=== PATIENT | male | born 1955 | race Caucasian/White ===

== ENCOUNTER 2017-08-18 12:35 | Emergency (ER) | payer BC ==
[~2017-08-18] VITALS: Ht 172.7 cm; Wt 85.7 kg
[~2017-08-18 12:35] MED LIST: ATOR20TA PO; GABA300C10 PO; HYDR1LIQ PO; METH10T PO; RAMI2.5C33 PO
[2017-08-18 14:22] VITALS: BP 142/62
[2017-08-18] MEDS ORDERED: HYDROcodone-ACET 10/325MG TAB PO ONE (14:45)
== END 2017-08-18 14:33 | disposition home or self-care (01) ==
LOC: ER 12:47
DX: S81.802D Unspecified open wound, left lower leg, subsequent encounter (principal); S81.801D Unspecified open wound, right lower leg, subsequent encounter; F17.210 Nicotine dependence, cigarettes, uncomplicated; E11.22 Type 2 diabetes mellitus with diabetic chronic kidney disease; I12.9 Hypertensive chronic kidney disease with stage 1 through stage 4 chronic kidney disease, or unspecified chronic kidney disease; N18.9 Chronic kidney disease, unspecified; Z79.4 Long term (current) use of insulin; Z76.0 Encounter for issue of repeat prescription; Z88.6 Allergy status to analgesic agent; Z91.040 Latex allergy status; X58.XXXD Exposure to other specified factors, subsequent encounter

== ENCOUNTER 2017-09-19 12:23 | Inpatient (IN) | payer SELFPAY ==
[~2017-09-19] VITALS: Ht 152.4 cm; Wt 80.0 kg
[2017-09-19 14:04] LABS: Albumin 1.8 g/dL (3.4-5.0); Bilirubin, Total 0.1 mg/dL (0.2-1.0); Calcium 8.4 mg/dL (8.5-10.1); Potassium 5.2 mmol/L (3.5-5.1); Total Protein 8.3 g/dL (6.4-8.2)
[2017-09-19 14:11] LABS: Basophils # (auto) 0.1 uL; Eosinophils # (auto) 0.2 uL; Lymphocytes # (auto) 0.9 uL; Mean Corpuscular Volume 77.5 fL (80.0-100.0); Monocytes # (auto) 0.3 uL; Monocytes % (auto) 4.1 % (0.0-12.0); Neutrophils # (auto) 5.4 uL; White Blood Cell 6.9 10^3/uL (4.4-10.8)
[2017-09-19 14:17] LABS: Basophils % (auto) 0.9 % (0.0-2.0); Eosinophils % (auto) 3.4 % (0.0-7.0); Hematocrit 23.8 % (41.0-53.0); Hemoglobin 7.2 g/dL (13.5-17.5); Lymphocytes % (auto) 13.3 % (10.0-50.0); Mean Corpuscular Hemoglobin 23.5 pg (28.0-32.0); Mean Corpuscular Hgb Conc. 30.3 g/dL (32.0-36.0); Neutrophils % (auto) 78.3 % (37.0-80.0); Platelet Count (auto) 604 10^3/uL (140-450); Red Blood Cells 3.07 10^6/uL (4.5-5.90); Red Cell Distribution Width 17.3 % (11.8-14.3)
[2017-09-19] MEDS ORDERED: VANCOMYCIN 1GM/250ML 250 ML IV ONE (20:45)
[2017-09-19] MEDS ORDERED: HYDROcodone-ACET 10/325MG TAB PO ONE (20:45)
[2017-09-19] MEDS ORDERED: cefTRIAXone 1GM/10ml IVPUSH 10 ML IV ONE (20:45)
[2017-09-19] MEDS ORDERED: diphenhdrAMINE HCL 50 MG/1 ML VL ONE (21:56)
[2017-09-19] MEDS ORDERED: diphenhdrAMINE HCL 50 MG/1 ML VL IV ONE (22:00)
[2017-09-19 22:14] LABS: Urine Bacteria NONE SEEN /hpf (None Seen); Urine Blood Negative /uL (Negative); Urine Hyaline Cast FEW /lpf (0 - 2); Urine Specific Gravity 1.015 (1.001-1.035); Urine WBC <1 /hpf (0 - 3)
[2017-09-19] MEDS ORDERED: ACETAMINOPHEN 500 MG TAB PO PRN (23:30)
[2017-09-19] MEDS ORDERED: DEXTROSE (50%) 50ML SYRG IV PRN ×2 (23:30)
[2017-09-19] MEDS ORDERED: ONDANSETRON HCL 4 MG/2 ML VIAL IV PRN (23:30)
[2017-09-20] VITALS (12 sets, daily range): BP systolic 123–160; BP diastolic 58–85
[2017-09-20] MEDS: HYDROcodone-ACET 5/325MG TAB PO PRN ×2 (00:51→08:31)
[2017-09-20] MEDS ORDERED: LORazepam 2MG/ML-1ML VIAL IV PRN (02:30)
[2017-09-20] MEDS: GABAPENTIN 300 MG CAP PO SCH ×4 (05:52→21:36)
[2017-09-20] MEDS: CLINDAMYCIN 600MG IV 50 ML IV SCH ×3 (05:52→22:25)
[2017-09-20] MEDS: HYDROmorphone HCL 2 MG/ML VL IV PRN ×2 (05:57→10:11)
[2017-09-20] MEDS: InsuLIN REG 1unit/0.01ml Soln (100units/ml) SC SCH ×4 (06:04→21:37)
[2017-09-20] MEDS: ACCU-CHEK COMFORT CURVE STRIP VI SCH ×4 (06:04→21:37)
[2017-09-20 06:06] LABS: Hematocrit 22.8 % (41.0-53.0); Hemoglobin 7.1 g/dL (13.5-17.5); Mean Corpuscular Hemoglobin 23.7 pg (28.0-32.0); Mean Corpuscular Hgb Conc. 31.2 g/dL (32.0-36.0)
[2017-09-20 06:08] LABS: Mean Corpuscular Volume 76.1 fL (80.0-100.0); Platelet Count (auto) 525 10^3/uL (140-450); Red Blood Cells 2.99 10^6/uL (4.5-5.90); Red Cell Distribution Width 17.5 % (11.8-14.3); White Blood Cell 6.2 10^3/uL (4.4-10.8)
[2017-09-20 06:22] LABS: BUN/Creatinine Ratio 10.7; Calcium 8.5 mg/dL (8.5-10.1); Potassium 4.9 mmol/L (3.5-5.1)
[2017-09-20 08:31] LABS: Basophils # (auto) 0.1 uL; Basophils % (auto) 0.9 % (0.0-2.0); Eosinophils # (auto) 0.3 uL; Eosinophils % (auto) 5.1 % (0.0-7.0); Lymphocytes # (auto) 1.4 uL; Lymphocytes % (auto) 21.6 % (10.0-50.0); Monocytes # (auto) 0.5 uL; Monocytes % (auto) 7.2 % (0.0-12.0); Neutrophils # (auto) 4.3 uL; Neutrophils % (auto) 65.2 % (37.0-80.0)
[2017-09-20] MEDS: cefTRIAXone 1GM/10ml IVPUSH 10 ML IV SCH (08:31)
[2017-09-20 10:47] LABS: Alcohol, Urine < 3.0 mg/dL (0-5); Amphetamine Screen, Urine NEGATIVE (NEGATIVE); Barbiturate Scree,Urine NEGATIVE (NEGATIVE); Benzodiazephine Screen, Urine NEGATIVE (NEGATIVE); Cannabinoid Screen, Urine POSITIVE (NEGATIVE); Cocaine Screen, Urine NEGATIVE (NEGATIVE); Opiate Scree,Urine NEGATIVE (NEGATIVE); Phencyclidine Screen, Urine NEGATIVE (NEGATIVE)
[2017-09-20] MEDS: METHADONE HCL 10 MG TAB PO SCH (15:35)
[2017-09-20 15:59] LABS: INR 1.05 (0.9-1.15); Partial Thromboplastin Time 38.3 sec (23.78-33.04); Prothrombin Time 11.2 sec (9.27-12.13)
[2017-09-21 05:23] VITALS: BP 150/60
[2017-09-21] MEDS: CLINDAMYCIN 600MG IV 50 ML IV SCH ×3 (05:24→21:32)
[2017-09-21] MEDS: HYDROmorphone HCL 2 MG/ML VL IV PRN ×2 (05:24→08:34)
[2017-09-21] MEDS: GABAPENTIN 300 MG CAP PO SCH ×3 (05:24→21:33)
[2017-09-21] MEDS: ACCU-CHEK COMFORT CURVE STRIP VI SCH ×4 (06:25→21:48)
[2017-09-21] MEDS: InsuLIN REG 1unit/0.01ml Soln (100units/ml) SC SCH ×4 (06:47→21:48)
[2017-09-21 09:39] VITALS: BP 138/69
[2017-09-21] MEDS: cefTRIAXone 1GM/10ml IVPUSH 10 ML IV SCH (09:45)
[2017-09-21] MEDS: METHADONE HCL 10 MG TAB PO SCH ×2 (09:45→21:33)
[2017-09-21 13:00] VITALS: BP 154/76
[2017-09-21 17:20] VITALS: BP 142/71
[2017-09-21] MEDS: INSULIN LANTUS (GLARGINE) 1 /0.01ml (100units/ml) SC SCH (21:48)
[2017-09-21 22:00] VITALS: BP 145/67
[2017-09-22 04:50] VITALS: BP 146/65
[2017-09-22] MEDS: CLINDAMYCIN 600MG IV 50 ML IV SCH (05:34)
[2017-09-22] MEDS: GABAPENTIN 300 MG CAP PO SCH ×3 (05:35→22:00)
[2017-09-22] MEDS: InsuLIN REG 1unit/0.01ml Soln (100units/ml) SC SCH ×4 (06:29→22:16)
[2017-09-22] MEDS: ACCU-CHEK COMFORT CURVE STRIP VI SCH ×4 (06:29→22:16)
[2017-09-22 09:00] VITALS: BP 140/81
[2017-09-22] MEDS: METHADONE HCL 10 MG TAB PO SCH ×2 (09:09→22:15)
[2017-09-22] MEDS: cefTRIAXone 1GM/10ml IVPUSH 10 ML IV SCH (09:09)
[2017-09-22 13:00] VITALS: BP 147/75
[2017-09-22] MEDS: ceFAZolin 1GM/100ML 100 ML IV SCH ×2 (15:41→22:15)
[2017-09-22 17:00] VITALS: BP 163/67
[2017-09-22 22:00] VITALS: BP 157/66
[2017-09-22] MEDS: INSULIN LANTUS (GLARGINE) 1 /0.01ml (100units/ml) SC SCH (22:16)
[2017-09-23 05:00] VITALS: BP 142/71
[2017-09-23] MEDS: ceFAZolin 1GM/100ML 100 ML IV SCH ×3 (05:24→22:29)
[2017-09-23] MEDS: GABAPENTIN 300 MG CAP PO SCH ×3 (05:27→21:53)
[2017-09-23 06:03] LABS: Basophils # (auto) 0.1 uL; Eosinophils # (auto) 0.2 uL; Hemoglobin 9.4 g/dL (13.5-17.5); Lymphocytes # (auto) 1.1 uL; Nucleated Red Blood Cells % 0.1 %; Red Cell Distribution Width 17.5 % (11.8-14.3)
[2017-09-23 06:05] LABS: Basophils % (auto) 1.1 % (0.0-2.0); Lymphocytes % (auto) 19.3 % (10.0-50.0); Mean Corpuscular Hemoglobin 24.5 pg (28.0-32.0); Mean Corpuscular Hgb Conc. 31.2 g/dL (32.0-36.0); Mean Corpuscular Volume 78.4 fL (80.0-100.0); Monocytes # (auto) 0.4 uL; Monocytes % (auto) 7.3 % (0.0-12.0); Neutrophils % (auto) 68.3 % (37.0-80.0); Platelet Count (auto) 494 10^3/uL (140-450); Red Blood Cells 3.82 10^6/uL (4.5-5.90); White Blood Cell 5.8 10^3/uL (4.4-10.8)
[2017-09-23 06:11] LABS: Potassium 5.1 mmol/L (3.5-5.1)
[2017-09-23 06:18] LABS: Albumin 1.7 g/dL (3.4-5.0); Calcium 8.7 mg/dL (8.5-10.1)
[2017-09-23 06:21] LABS: Bilirubin, Total 0.2 mg/dL (0.2-1.0)
[2017-09-23] MEDS: ACCU-CHEK COMFORT CURVE STRIP VI SCH ×4 (06:40→22:13)
[2017-09-23] MEDS: InsuLIN REG 1unit/0.01ml Soln (100units/ml) SC SCH ×4 (06:41→22:12)
[2017-09-23 09:00] VITALS: BP 137/62
[2017-09-23] MEDS: METHADONE HCL 10 MG TAB PO SCH ×2 (09:32→21:53)
[2017-09-23] MEDS: ASCORBIC ACID 500 MG TAB PO SCH ×2 (09:32→22:13)
[2017-09-23] MEDS: MULTIPLE VITAMINS W/ MINERALS TAB PO SCH ×2 (09:34→22:13)
[2017-09-23 13:00] VITALS: BP 153/99
[2017-09-23] MEDS ORDERED: LIDOCAINE 1% (LOCAL ANESTH.) PF 5ml SDV ID ONE (14:15)
[2017-09-23 16:59] VITALS: BP 153/74
[2017-09-23 20:00] VITALS: BP 150/70
[2017-09-23 22:00] VITALS: BP 150/68
[2017-09-23] MEDS: INSULIN LANTUS (GLARGINE) 1 /0.01ml (100units/ml) SC SCH (22:12)
[2017-09-23] MEDS: SODIUM CHLOR 0.9% PF (SALINE LOCK) 10ML VIAL/SYR IV SCH (22:13)
[2017-09-24 05:00] VITALS: BP 136/63
[2017-09-24] MEDS: GABAPENTIN 300 MG CAP PO SCH ×3 (06:00→21:05)
[2017-09-24] MEDS: ceFAZolin 1GM/100ML 100 ML IV SCH (06:14)
[2017-09-24] MEDS: InsuLIN REG 1unit/0.01ml Soln (100units/ml) SC SCH ×4 (06:18→22:00)
[2017-09-24] MEDS: ACCU-CHEK COMFORT CURVE STRIP VI SCH ×4 (06:36→22:20)
[2017-09-24 08:00] VITALS: BP 154/70
[2017-09-24] MEDS: SODIUM CHLOR 0.9% PF (SALINE LOCK) 10ML VIAL/SYR IV SCH ×2 (09:52→22:20)
[2017-09-24] MEDS: PRO-STAT 64 30ML PO SCH (10:00)
[2017-09-24] MEDS: ASCORBIC ACID 500 MG TAB PO SCH ×2 (10:16→21:05)
[2017-09-24] MEDS: METHADONE HCL 10 MG TAB PO SCH ×2 (10:16→21:06)
[2017-09-24] MEDS: MULTIPLE VITAMINS W/ MINERALS TAB PO SCH ×2 (10:16→21:05)
[2017-09-24 12:00] VITALS: BP 155/71
[2017-09-24 17:00] VITALS: BP 143/68
[2017-09-24] MEDS: cefTRIAXone 1GM/10ml IVPUSH 10 ML IV SCH (21:03)
[2017-09-24] MEDS: INSULIN LANTUS (GLARGINE) 1 /0.01ml (100units/ml) SC SCH (22:00)
[2017-09-24 22:55] VITALS: BP 151/80
[2017-09-25 05:42] VITALS: BP 128/69
[2017-09-25] MEDS: GABAPENTIN 300 MG CAP PO SCH ×3 (05:44→22:00)
[2017-09-25 05:52] LABS: Partial Thromboplastin Time 38.3 sec (23.78-33.04); Prothrombin Time 10.7 sec (9.27-12.13)
[2017-09-25] MEDS: ACCU-CHEK COMFORT CURVE STRIP VI SCH ×4 (06:00→22:00)
[2017-09-25] MEDS: InsuLIN REG 1unit/0.01ml Soln (100units/ml) SC SCH ×4 (07:00→22:00)
[2017-09-25] MEDS ORDERED: IOHEXOL 350 MG/ML 100ML IJ ONE (07:19)
[2017-09-25] MEDS ORDERED: LIDOCAINE 2%HCL (LOCAL ANESTH.) INJ 20ML MDV ONE (07:20)
[2017-09-25 08:40] VITALS: BP 129/67
[2017-09-25] MEDS ORDERED: ANGIOMAX 250 MG VIAL IV ONE (08:53)
[2017-09-25] MEDS ORDERED: fentaNYL CITRATE 100 MCG/2 ML VL ONE (08:53)
[2017-09-25] MEDS ORDERED: SODIUM CHL 0.9% 0 ML ONE (08:54)
[2017-09-25] MEDS ORDERED: MIDAZOLAM HCL 1MG/1ML-2 ML VIAL ONE (08:54)
[2017-09-25] MEDS: PRO-STAT 64 30ML PO SCH (10:00)
[2017-09-25] MEDS: ASCORBIC ACID 500 MG TAB PO SCH ×2 (10:10→22:31)
[2017-09-25] MEDS: METHADONE HCL 10 MG TAB PO SCH ×2 (10:10→22:30)
[2017-09-25] MEDS: MULTIPLE VITAMINS W/ MINERALS TAB PO SCH ×2 (10:10→22:30)
[2017-09-25] MEDS: cefTRIAXone 1GM/10ml IVPUSH 10 ML IV SCH ×2 (10:10→21:00)
[2017-09-25] MEDS: SODIUM CHLOR 0.9% PF (SALINE LOCK) 10ML VIAL/SYR IV SCH ×2 (10:11→22:00)
[2017-09-25 12:28] VITALS: BP 146/70
[2017-09-25 16:46] VITALS: BP 153/80
[2017-09-25] MEDS: INSULIN LANTUS (GLARGINE) 1 /0.01ml (100units/ml) SC SCH (22:00)
[2017-09-25 22:06] VITALS: BP 151/70
[2017-09-26 05:00] VITALS: BP 107/66
[2017-09-26] MEDS: GABAPENTIN 300 MG CAP PO SCH (06:00)
[2017-09-26] MEDS: InsuLIN REG 1unit/0.01ml Soln (100units/ml) SC SCH ×2 (06:42→11:36)
[2017-09-26] MEDS: ACCU-CHEK COMFORT CURVE STRIP VI SCH ×2 (06:42→11:28)
[2017-09-26] MEDS: cefTRIAXone 1GM/10ml IVPUSH 10 ML IV SCH (08:30)
[2017-09-26 09:00] VITALS: BP 122/60
[2017-09-26] MEDS: MULTIPLE VITAMINS W/ MINERALS TAB PO SCH (09:30)
[2017-09-26] MEDS: SODIUM CHLOR 0.9% PF (SALINE LOCK) 10ML VIAL/SYR IV SCH (09:30)
[2017-09-26] MEDS: METHADONE HCL 10 MG TAB PO SCH (09:30)
[2017-09-26] MEDS: ASCORBIC ACID 500 MG TAB PO SCH (09:31)
[2017-09-26] MEDS: PRO-STAT 64 30ML PO SCH (09:31)
[2017-09-26 13:00] VITALS: BP 135/61
== END 2017-09-26 15:00 | disposition home or self-care (01) | DRG 602 ==
LOC: ER 12:23 → WEST WING 12:24 → TELE-WESTW 09-20 00:20
PROVIDERS: ADMIT Nurse Practitioner Family; ATTEND Family Medicine
PROC: 30233N1 Transfusion of Nonautologous Red Blood Cells into Peripheral Vein, Percutaneous Approach (ICD-10-PCS; principal; 2017-09-20)
PROC: 02HV33Z Insertion of Infusion Device into Superior Vena Cava, Percutaneous Approach (ICD-10-PCS; 2017-09-23)
DX: L03.115 Cellulitis of right lower limb (principal); E43 Unspecified severe protein-calorie malnutrition; E11.21 Type 2 diabetes mellitus with diabetic nephropathy; E11.40 Type 2 diabetes mellitus with diabetic neuropathy, unspecified; R56.9 Unspecified convulsions; L97.528 Non-pressure chronic ulcer of other part of left foot with other specified severity; L97.518 Non-pressure chronic ulcer of other part of right foot with other specified severity; L98.498 Non-pressure chronic ulcer of skin of other sites with other specified severity; M86.8X8 Other osteomyelitis, other site; E11.51 Type 2 diabetes mellitus with diabetic peripheral angiopathy without gangrene; E11.69 Type 2 diabetes mellitus with other specified complication; E11.22 Type 2 diabetes mellitus with diabetic chronic kidney disease; E11.610 Type 2 diabetes mellitus with diabetic neuropathic arthropathy; E11.621 Type 2 diabetes mellitus with foot ulcer; N18.3 Chronic kidney disease, stage 3 (moderate); D64.9 Anemia, unspecified; L03.116 Cellulitis of left lower limb; I12.9 Hypertensive chronic kidney disease with stage 1 through stage 4 chronic kidney disease, or unspecified chronic kidney disease; F41.9 Anxiety disorder, unspecified; I73.9 Peripheral vascular disease, unspecified; E78.5 Hyperlipidemia, unspecified; B95.61 Methicillin susceptible Staphylococcus aureus infection as the cause of diseases classified elsewhere; E11.622 Type 2 diabetes mellitus with other skin ulcer; F12.10 Cannabis abuse, uncomplicated; F17.210 Nicotine dependence, cigarettes, uncomplicated; Z53.29 Procedure and treatment not carried out because of patient's decision for other reasons; E11.65 Type 2 diabetes mellitus with hyperglycemia; L97.529 Non-pressure chronic ulcer of other part of left foot with unspecified severity; I77.89 Other specified disorders of arteries and arterioles; Z82.49 Family history of ischemic heart disease and other diseases of the circulatory system; Z88.8 Allergy status to other drugs, medicaments and biological substances; Z91.040 Latex allergy status; Z68.34 Body mass index [BMI] 34.0-34.9, adult; I25.2 Old myocardial infarction; Z79.4 Long term (current) use of insulin; Z83.3 Family history of diabetes mellitus; Z79.899 Other long term (current) drug therapy; Z89.432 Acquired absence of left foot; Z89.431 Acquired absence of right foot; Z88.6 Allergy status to analgesic agent; Z80.8 Family history of malignant neoplasm of other organs or systems
CPT/HCPCS: 36415; 36569; 71045; 73630; 80048; 80053; 80307; 81001; 82962; 83036; 83605; 85007; 85025; 85027; 85610; 85730; 86850; 86900; 86901; 86920; 87040; 87077; 87081; 87186; 87205; 93926; 96367; 96374; 96375; J0690; J1815; J2250; J3490

== ENCOUNTER 2017-10-17 02:42 | Inpatient (IN) | payer BC ==
[~2017-10-17] VITALS: Ht 170.2 cm; Wt 80.3 kg
[2017-10-17 03:58] LABS: Basophils # (auto) 0.1 uL; Eosinophils # (auto) 0.3 uL; Eosinophils % (auto) 5.2 % (0.0-7.0); Hemoglobin 9.5 g/dL (13.5-17.5); Monocytes # (auto) 0.4 uL; Monocytes % (auto) 6.5 % (0.0-12.0); Red Cell Distribution Width 18.3 % (11.8-14.3); White Blood Cell 6.1 10^3/uL (4.4-10.8)
[2017-10-17 04:05] LABS: Basophils % (auto) 1.3 % (0.0-2.0); Hematocrit 29.9 % (41.0-53.0); Lymphocytes # (auto) 1.3 uL; Lymphocytes % (auto) 21.8 % (10.0-50.0); Mean Corpuscular Hemoglobin 24.6 pg (28.0-32.0); Mean Corpuscular Hgb Conc. 31.8 g/dL (32.0-36.0); Mean Corpuscular Volume 77.2 fL (80.0-100.0); Neutrophils % (auto) 65.2 % (37.0-80.0); Nucleated Red Blood Cells % 0.3 %; Platelet Count (auto) 439 10^3/uL (140-450); Red Blood Cells 3.87 10^6/uL (4.5-5.90)
[2017-10-17 04:14] LABS: Albumin 2.2 g/dL (3.4-5.0); BUN/Creatinine Ratio 15.3; Calcium 8.8 mg/dL (8.5-10.1); Potassium 4.1 mmol/L (3.5-5.1)
[2017-10-17 04:16] LABS: Bilirubin, Total 0.1 mg/dL (0.2-1.0); Total Protein 9.2 g/dL (6.4-8.2)
[2017-10-17] MEDS ORDERED: SODIUM CHLORIDE 0.9% 1,000 ML IV ONE (10:13)
[2017-10-17] MEDS ORDERED: METOCLOPRAMIDE HCL 5MG/ml INJ 2ml VIAL IV ONE (10:15)
[2017-10-17] MEDS ORDERED: METHADONE HCL 10 MG TAB PO ONE (10:15)
[2017-10-17] MEDS ORDERED: VANCOMYCIN 1GM/250ML 250 ML IV ONE (15:00)
[2017-10-17] MEDS ORDERED: HYDROmorphone HCL 2 MG/ML VL IV PRN (15:15)
[2017-10-17] MEDS ORDERED: LORazepam 2MG/ML-1ML VIAL IV ONE (15:15)
[2017-10-17] MEDS ORDERED: NITROGLYCERIN 0.4 MG SL TAB SL PRN (15:15)
[2017-10-17] MEDS ORDERED: LACTULOSE 20Gm/30ML SOLN PO PRN (15:15)
[2017-10-17] MEDS ORDERED: LORazepam 0.5 MG TAB PO PRN (15:15)
[2017-10-17] MEDS ORDERED: MORPHINE SULF(PF) 0.5MG/ML 10ML VIAL IV PRN (15:15)
[2017-10-17] MEDS ORDERED: TEMAZEPAM 15 MG CAP PO PRN (15:15)
[2017-10-17] MEDS ORDERED: DEXTROSE (50%) 50ML SYRG IV PRN (15:15)
[2017-10-17] MEDS ORDERED: PIPERACILLIN-TAZOB 3.375GM 100 ML IV ONE (15:15)
[2017-10-17] MEDS ORDERED: PROMETHAZINE HCL 25 MG/ML 1ML IV PRN (15:15)
[2017-10-17] MEDS ORDERED: ACETAMINOPHEN 500 MG TAB PO PRN (15:15)
[2017-10-17] MEDS ORDERED: diphenhdrAMINE HCL 50 MG/1 ML VL IV ONE (15:30)
[2017-10-17] MEDS: SODIUM CHLORIDE 0.9% 1,000 ML IV SCH (15:38)
[2017-10-17] MEDS: ENOXAPARIN SOD 40 MG/0.4 ML SYRINGE SC SCH (15:51)
[2017-10-17 16:41] LABS: Urine Bacteria FEW /hpf (None Seen); Urine Blood TRACE /uL (Negative); Urine Hyaline Cast FEW /lpf (0 - 2); Urine Specific Gravity 1.015 (1.001-1.035); Urine WBC 3 /hpf (0 - 3)
[2017-10-17] MEDS: ACCU-CHEK COMFORT CURVE STRIP VI SCH ×2 (17:14→22:19)
[2017-10-17] MEDS: InsuLIN REG 1unit/0.01ml Soln (100units/ml) SC SCH ×2 (17:17→22:22)
[2017-10-17 20:23] LABS: INR 1.01 (0.9-1.15); Partial Thromboplastin Time 41.8 sec (23.78-33.04); Prothrombin Time 10.8 sec (9.27-12.13)
[2017-10-17] MEDS: HYDROcodone-ACET 5/325MG TAB PO PRN (20:31)
[2017-10-17] MEDS: CLINDAMYCIN 600MG IV 50 ML IV SCH (20:35)
[2017-10-17] MEDS: PIPERACILLIN-TAZOB 3.375GM 100 ML IV SCH (22:07)
[2017-10-17 22:08] VITALS: BP 162/73
[2017-10-18 00:49] VITALS: BP 120/56
[2017-10-18] MEDS: SODIUM CHLORIDE 0.9% 1,000 ML IV SCH ×3 (01:07→21:07)
[2017-10-18] MEDS: CLINDAMYCIN 600MG IV 50 ML IV SCH (01:40)
[2017-10-18] MEDS: HYDROcodone-ACET 5/325MG TAB PO PRN ×2 (02:38→08:30)
[2017-10-18] MEDS: PIPERACILLIN-TAZOB 3.375GM 100 ML IV SCH ×4 (02:58→20:44)
[2017-10-18 05:14] VITALS: BP 99/57
[2017-10-18] MEDS: ACCU-CHEK COMFORT CURVE STRIP VI SCH ×4 (06:26→21:32)
[2017-10-18] MEDS: InsuLIN REG 1unit/0.01ml Soln (100units/ml) SC SCH ×4 (06:26→21:31)
[2017-10-18 08:20] LABS: Basophils # (auto) 0.1 uL; Eosinophils # (auto) 0.3 uL; Eosinophils % (auto) 6.3 % (0.0-7.0); Hemoglobin 9.2 g/dL (13.5-17.5); Monocytes # (auto) 0.2 uL; Monocytes % (auto) 4.6 % (0.0-12.0)
[2017-10-18 08:22] LABS: Basophils % (auto) 1.1 % (0.0-2.0); Hematocrit 29.3 % (41.0-53.0); Lymphocytes # (auto) 0.4 uL; Lymphocytes % (auto) 7.3 % (10.0-50.0); Mean Corpuscular Hemoglobin 24.2 pg (28.0-32.0); Mean Corpuscular Hgb Conc. 31.5 g/dL (32.0-36.0); Mean Corpuscular Volume 76.9 fL (80.0-100.0); Neutrophils % (auto) 80.7 % (37.0-80.0); Nucleated Red Blood Cells % 0.2 %; Platelet Count (auto) 365 10^3/uL (140-450); Red Blood Cells 3.82 10^6/uL (4.5-5.90)
[2017-10-18] MEDS ORDERED: METH10T PO (08:23)
[2017-10-18 08:38] LABS: Albumin 1.7 g/dL (3.4-5.0); BUN/Creatinine Ratio 14.2; Bilirubin, Total 0.2 mg/dL (0.2-1.0); Calcium 8.4 mg/dL (8.5-10.1); Potassium 4.4 mmol/L (3.5-5.1); Total Protein 7.8 g/dL (6.4-8.2)
[2017-10-18 09:00] VITALS: BP 96/44
[2017-10-18] MEDS ORDERED: METHADONE HCL 10 MG TAB PO SCH (10:00)
[2017-10-18] MEDS: ENOXAPARIN SOD 40 MG/0.4 ML SYRINGE SC SCH (10:36)
[2017-10-18] MEDS: METHADONE HCL 10 MG TAB PO SCH ×2 (10:36→21:32)
[2017-10-18 12:51] VITALS: BP 124/70
[2017-10-18 17:00] VITALS: BP 116/59
[2017-10-18 22:00] VITALS: BP 135/65
[2017-10-19] MEDS: PIPERACILLIN-TAZOB 3.375GM 100 ML IV SCH ×5 (02:28→21:00)
[2017-10-19] MEDS: HYDROcodone-ACET 5/325MG TAB PO PRN (02:33)
[2017-10-19] MEDS: ACCU-CHEK COMFORT CURVE STRIP VI SCH ×4 (06:13→21:00)
[2017-10-19] MEDS: InsuLIN REG 1unit/0.01ml Soln (100units/ml) SC SCH ×3 (06:13→17:29)
[2017-10-19 06:19] VITALS: BP 111/53
[2017-10-19 08:13] VITALS: BP 142/69
[2017-10-19 08:17] LABS: BUN/Creatinine Ratio 13.8; Calcium 8.1 mg/dL (8.5-10.1); Potassium 4.7 mmol/L (3.5-5.1)
[2017-10-19] MEDS: SODIUM CHLORIDE 0.9% 1,000 ML IV SCH ×2 (09:41→17:28)
[2017-10-19] MEDS: ENOXAPARIN SOD 40 MG/0.4 ML SYRINGE SC SCH (09:42)
[2017-10-19] MEDS: METHADONE HCL 10 MG TAB PO SCH ×2 (09:42→22:30)
[2017-10-19] MEDS ORDERED: DEXTROSE (50%) 50ML SYRG IV PRN (12:00)
[2017-10-19] MEDS ORDERED: INSLANTI SC (12:00)
[2017-10-19 13:00] VITALS: BP 140/64
[2017-10-19 16:20] VITALS: BP 132/78
[2017-10-19 22:00] VITALS: BP 123/68
[2017-10-19] MEDS ORDERED: InsuLIN REG 1unit/0.01ml Soln (100units/ml) SC SCH (22:00)
[2017-10-19] MEDS ORDERED: INSULIN LANTUS (GLARGINE) 1 /0.01ml (100units/ml) SC SCH (22:00)
[2017-10-20] MEDS: PIPERACILLIN-TAZOB 3.375GM 100 ML IV SCH ×3 (03:00→15:00)
[2017-10-20] MEDS: SODIUM CHLORIDE 0.9% 1,000 ML IV SCH ×2 (03:07→13:07)
[2017-10-20] MEDS: HYDROcodone-ACET 5/325MG TAB PO PRN (03:30)
[2017-10-20 06:00] VITALS: BP 142/63
[2017-10-20] MEDS: ACCU-CHEK COMFORT CURVE STRIP VI SCH ×3 (06:34→17:00)
[2017-10-20] MEDS: InsuLIN REG 1unit/0.01ml Soln (100units/ml) SC SCH ×3 (06:35→17:00)
[2017-10-20 07:39] LABS: Basophils # (auto) 0.1 uL; Eosinophils # (auto) 0.4 uL; Hemoglobin 8.2 g/dL (13.5-17.5); Lymphocytes # (auto) 1.1 uL; Mean Corpuscular Volume 77.7 fL (80.0-100.0); Monocytes # (auto) 0.3 uL; Neutrophils # (auto) 2.9 uL; White Blood Cell 4.8 10^3/uL (4.4-10.8)
[2017-10-20 07:43] LABS: Basophils % (auto) 1.4 % (0.0-2.0); Eosinophils % (auto) 7.9 % (0.0-7.0); Hematocrit 26.2 % (41.0-53.0); Lymphocytes % (auto) 23.3 % (10.0-50.0); Mean Corpuscular Hemoglobin 24.3 pg (28.0-32.0); Mean Corpuscular Hgb Conc. 31.3 g/dL (32.0-36.0); Monocytes % (auto) 7.2 % (0.0-12.0); Neutrophils % (auto) 60.2 % (37.0-80.0); Platelet Count (auto) 360 10^3/uL (140-450); Red Blood Cells 3.37 10^6/uL (4.5-5.90); Red Cell Distribution Width 18.1 % (11.8-14.3)
[2017-10-20 07:51] LABS: BUN/Creatinine Ratio 15.2; Calcium 8.5 mg/dL (8.5-10.1); Potassium 4.3 mmol/L (3.5-5.1)
[2017-10-20 08:33] VITALS: BP 126/66
[2017-10-20] MEDS: ENOXAPARIN SOD 40 MG/0.4 ML SYRINGE SC SCH (09:10)
[2017-10-20] MEDS: METHADONE HCL 10 MG TAB PO SCH (09:10)
[2017-10-20 12:55] VITALS: BP 150/75
[2017-10-20 19:30] VITALS: BP 126/83
== END 2017-10-20 19:40 | disposition home or self-care (01) | DRG 682 ==
LOC: ER 02:42 → TELE 02:43 → TELE-WESTW 19:45
PROVIDERS: ADMIT Internal Medicine; ATTEND Internal Medicine
PROC: 06HY33Z Insertion of Infusion Device into Lower Vein, Percutaneous Approach (ICD-10-PCS; principal; 2017-10-18)
DX: N17.9 Acute kidney failure, unspecified (principal); E43 Unspecified severe protein-calorie malnutrition; L97.312 Non-pressure chronic ulcer of right ankle with fat layer exposed; L03.115 Cellulitis of right lower limb; L03.116 Cellulitis of left lower limb; M86.272 Subacute osteomyelitis, left ankle and foot; E11.69 Type 2 diabetes mellitus with other specified complication; E11.610 Type 2 diabetes mellitus with diabetic neuropathic arthropathy; E11.621 Type 2 diabetes mellitus with foot ulcer; Z83.3 Family history of diabetes mellitus; E11.21 Type 2 diabetes mellitus with diabetic nephropathy; I12.9 Hypertensive chronic kidney disease with stage 1 through stage 4 chronic kidney disease, or unspecified chronic kidney disease; E11.22 Type 2 diabetes mellitus with diabetic chronic kidney disease; N18.3 Chronic kidney disease, stage 3 (moderate); R56.9 Unspecified convulsions; E78.5 Hyperlipidemia, unspecified; D63.8 Anemia in other chronic diseases classified elsewhere; E11.622 Type 2 diabetes mellitus with other skin ulcer; F17.210 Nicotine dependence, cigarettes, uncomplicated; F32.9 Major depressive disorder, single episode, unspecified; F41.9 Anxiety disorder, unspecified; G89.4 Chronic pain syndrome; I87.2 Venous insufficiency (chronic) (peripheral); L97.529 Non-pressure chronic ulcer of other part of left foot with unspecified severity; I70.0 Atherosclerosis of aorta; Z53.20 Procedure and treatment not carried out because of patient's decision for unspecified reasons; Z82.49 Family history of ischemic heart disease and other diseases of the circulatory system; Z88.5 Allergy status to narcotic agent; Z88.8 Allergy status to other drugs, medicaments and biological substances; Z88.6 Allergy status to analgesic agent; Z91.040 Latex allergy status; Z89.422 Acquired absence of other left toe(s); Z89.421 Acquired absence of other right toe(s); Z80.9 Family history of malignant neoplasm, unspecified; Z68.27 Body mass index [BMI] 27.0-27.9, adult
CPT/HCPCS: 36415; 71045; 73700; 76775; 80048; 80053; 80061; 81001; 82962; 83036; 83735; 84443; 85025; 85610; 85652; 85730; 87040; 87081; 93923; 96361; 96365; 96372; 96375; J1815; J2543; J3490

== ENCOUNTER 2020-05-30 16:42 | Inpatient (IN) | payer BC, MEDICAID ==
[~2020-05-30] VITALS: Ht 162.6 cm; Wt 66.1 kg
[~2020-05-30 16:42] MED LIST changes: -GABA300C10 PO; +INSLANTI SC
[2020-05-30] MEDS ORDERED: ONDANSETRON HCL 4 MG/2 ML VIAL IV ONE (17:45)
[2020-05-30] MEDS ORDERED: SODIUM CHLORIDE 0.9% 1,000 ML IVB ONE (17:45)
[2020-05-30] MEDS ORDERED: PANTOPRAZOLE 40 MG/10 ML VIAL INJ IV ONE (17:45)
[2020-05-30 17:56] LABS: Basophils # (auto) 0.1 10 ^3/uL (0-0.2); Basophils % (auto) 0.6 % (0.0-2.0); Eosinophils # (auto) 0 10 ^3/uL (0-0.8); Hematocrit 39.4 % (41.0-53.0); Hemoglobin 12.3 g/dL (13.5-17.5); Lymphocytes # (auto) 0.8 10 ^3/uL (0.4-5.4); Lymphocytes % (auto) 9.3 % (10.0-50.0); Mean Corpuscular Hemoglobin 25.2 pg (28.0-32.0); Mean Corpuscular Hgb Conc. 31.2 g/dL (32.0-36.0); Mean Corpuscular Volume 80.7 fL (80.0-100.0); Monocytes # (auto) 0.3 10 ^3/uL (0-1.3); Monocytes % (auto) 3.8 % (0.0-12.0); Neutrophils # (auto) 7.5 10 ^3/uL (1.6-8.6); Neutrophils % (auto) 86.3 % (37.0-80.0); Nucleated Red Blood Cells % 0.2 %; Platelet Count (auto) 392 10^3/uL (140-450); Red Blood Cells 4.89 10^6/uL (4.5-5.90); Red Cell Distribution Width 16.3 % (11.8-14.3); White Blood Cell 8.7 10^3/uL (4.4-10.8)
[2020-05-30 18:16] LABS: INR 0.94 (0.9-1.15); Partial Thromboplastin Time 21.8 sec (23.0-31.2)
[2020-05-30 18:17] LABS: Chloride 97 mmol/L (98-107); Potassium 4.5 mmol/L (3.5-5.1); Sodium 139 mmol/L (136-145)
[2020-05-30 18:23] LABS: Alanine Aminotransferase 16 U/L (16-61); Albumin 2.7 g/dL (3.4-5.0); Alkaline Phosphatase 150 U/L (45-117); Anion Gap 21 (5-15); Aspartate Aminotransferase 21 U/L (15-37); BUN/Creatinine Ratio 19.1; Bilirubin, Total 0.5 mg/dL (0.2-1.0); Blood Urea Nitrogen 47 mg/dL (7-18); Calcium 8.7 mg/dL (8.5-10.1); Carbon Dioxide 21 mmol/L (21-32); GFR African American 34 mL/min; GFR Non-African American 28 mL/min; Magnesium 2.5 mg/dL (1.6-2.6); Total Protein 9.1 g/dL (6.4-8.2)
[2020-05-30] MEDS ORDERED: PROMETHAZINE HCL 25 MG/ML 1ML IV ONE (19:30)
[2020-05-30] MEDS ORDERED: PANTOPRAZOLE 40mg/50ML NS AE 50 ML IV ONE (19:30)
[2020-05-30 19:47] LABS: Glucose 608 mg/dL (74-106)
[2020-05-30] MEDS ORDERED: cefTRIAXone 1GM/50ML D5W 50 ML IV ONE (20:00)
[2020-05-30] MEDS ORDERED: InsuLIN R (HUMAN) 100 UNITS in SODIUM CHL 0.9% 99 ML IV SCH (20:00)
[2020-05-30] MEDS ORDERED: metroNIDAZOLE 500MG/100ML 100 ML IV ONE (20:00)
[2020-05-30] MEDS: SODIUM CHLORIDE 0.9% 1,000 ML IV SCH ×3 (20:00→23:15)
[2020-05-30] MEDS ORDERED: DEXTROSE (50%) 50ML SYRG IV PRN (20:00)
[2020-05-30] MEDS: ACCU-CHEK COMFORT CURVE STRIP VI SCH ×2 (21:00→22:30)
[2020-05-30] MEDS: PANTOPRAZOLE 40mg/50ML NS AE 50 ML IV SCH (23:15)
[2020-05-30] MEDS ORDERED: NITROGLYCERIN 0.4 MG SL TAB SL PRN (23:15)
[2020-05-31] MEDS ORDERED: METOPROLOL TARTRATE 1MG/1ML-5ML VIAL IV PRN
[2020-05-31] MEDS ORDERED: ONDANSETRON HCL 4 MG/2 ML VIAL IV PRN
[2020-05-31] MEDS ORDERED: ACETAMINOPHEN 500 MG TAB PO PRN
[2020-05-31] MEDS ORDERED: SODIUM CHLORIDE 0.9% 1,000 ML IV SCH
[2020-05-31 00:04] LABS: Chloride 106 mmol/L (98-107); Potassium 4.7 mmol/L (3.5-5.1); Sodium 144 mmol/L (136-145)
[2020-05-31 00:10] LABS: Anion Gap 18 (5-15); BUN/Creatinine Ratio 19.5; Blood Urea Nitrogen 43 mg/dL (7-18); Calcium 8.1 mg/dL (8.5-10.1); Carbon Dioxide 20 mmol/L (21-32); GFR African American 39 mL/min; GFR Non-African American 32 mL/min
[2020-05-31 00:11] LABS: Glucose 486 mg/dL (74-106)
[2020-05-31 01:20] LABS: Basophils # (auto) 0 10 ^3/uL (0-0.2); Eosinophils # (auto) 0 10 ^3/uL (0-0.8); Lymphocytes # (auto) 0.7 10 ^3/uL (0.4-5.4); Monocytes # (auto) 0.3 10 ^3/uL (0-1.3); White Blood Cell 6.6 10^3/uL (4.4-10.8)
[2020-05-31 01:22] LABS: Basophils % (auto) 0.1 % (0.0-2.0); Hematocrit 37.2 % (41.0-53.0); Hemoglobin 11.7 g/dL (13.5-17.5); Lymphocytes % (auto) 10.5 % (10.0-50.0); Mean Corpuscular Hemoglobin 24.7 pg (28.0-32.0); Mean Corpuscular Hgb Conc. 31.5 g/dL (32.0-36.0); Mean Corpuscular Volume 78.3 fL (80.0-100.0); Neutrophils # (auto) 5.6 10 ^3/uL (1.6-8.6); Neutrophils % (auto) 84.4 % (37.0-80.0); Platelet Count (auto) 306 10^3/uL (140-450); Red Blood Cells 4.75 10^6/uL (4.5-5.90)
[2020-05-31] MEDS: ACCU-CHEK COMFORT CURVE STRIP VI SCH ×12 (01:30→22:00)
[2020-05-31 01:43] LABS: Anion Gap 12 (5-15); BUN/Creatinine Ratio 21.1; Blood Urea Nitrogen 43 mg/dL (7-18); Calcium 8.6 mg/dL (8.5-10.1); Carbon Dioxide 25 mmol/L (21-32); Chloride 108 mmol/L (98-107); GFR African American 43 mL/min; GFR Non-African American 35 mL/min; Glucose 394 mg/dL (74-106); Sodium 145 mmol/L (136-145)
[2020-05-31] MEDS: SODIUM CHLORIDE 0.9% 1,000 ML IV SCH ×5 (02:00→23:15)
[2020-05-31] MEDS: PANTOPRAZOLE 40mg/50ML NS AE 50 ML IV SCH ×2 (04:15→09:38)
[2020-05-31] MEDS: metroNIDAZOLE 500MG/100ML 100 ML IV SCH ×3 (06:00→22:00)
[2020-05-31] MEDS: ALBUTEROL SULF HFA 90MCG INH 200DOSE IN SCH ×3 (06:00→22:00)
[2020-05-31 06:51] LABS: Basophils # (auto) 0 10 ^3/uL (0-0.2); Eosinophils # (auto) 0 10 ^3/uL (0-0.8); Eosinophils % (auto) 0.1 % (0.0-7.0); Hemoglobin 10.5 g/dL (13.5-17.5); Lymphocytes # (auto) 0.9 10 ^3/uL (0.4-5.4); Neutrophils # (auto) 6.6 10 ^3/uL (1.6-8.6)
[2020-05-31 06:53] LABS: Basophils % (auto) 0.3 % (0.0-2.0); Hematocrit 31.7 % (41.0-53.0); Lymphocytes % (auto) 10.1 % (10.0-50.0); Mean Corpuscular Hemoglobin 25.5 pg (28.0-32.0); Mean Corpuscular Volume 77.3 fL (80.0-100.0); Monocytes # (auto) 0.9 10 ^3/uL (0-1.3); Monocytes % (auto) 11.2 % (0.0-12.0); Neutrophils % (auto) 78.3 % (37.0-80.0); Platelet Count (auto) 327 10^3/uL (140-450); Red Cell Distribution Width 15.8 % (11.8-14.3); White Blood Cell 8.4 10^3/uL (4.4-10.8)
[2020-05-31 07:09] LABS: INR 1.03 (0.9-1.15); Partial Thromboplastin Time 29.6 sec (23.0-31.2)
[2020-05-31 07:11] LABS: Potassium 3.8 mmol/L (3.5-5.1)
[2020-05-31 07:19] LABS: BUN/Creatinine Ratio 20.8; Calcium 8.4 mg/dL (8.5-10.1)
[2020-05-31] MEDS ORDERED: DexAMETHasone SOD PHOS 10MG/1ML VIAL INJ IV SCH (10:00)
[2020-05-31] MEDS: BUDESONIDE (INHALATION) 0.5 MG/2 ML NEB NEB SCH ×2 (10:29→22:00)
[2020-05-31] MEDS: DOXYCYCLINE 100MG/250ML 250 ML IV SCH ×2 (11:52)
[2020-05-31 14:09] LABS: Potassium 3.8 mmol/L (3.5-5.1)
[2020-05-31 14:14] LABS: BUN/Creatinine Ratio 21.1; Calcium 8.2 mg/dL (8.5-10.1)
[2020-05-31] MEDS ORDERED: INSULIN LANTUS (GLARGINE) 1 /0.01ml (100units/ml) SC ONE (16:00)
[2020-05-31] MEDS ORDERED: DEXTROSE (50%) 50ML SYRG IV PRN (16:00)
[2020-05-31] MEDS: InsuLIN REG 1unit/0.01ml Soln (100units/ml) SC SCH ×2 (17:30→22:00)
[2020-05-31] MEDS: PANTOPRAZOLE 40 MG/10 ML VIAL INJ IV SCH (22:00)
[2020-06-01] MEDS: DOXYCYCLINE 100MG/250ML 250 ML IV SCH ×3 (00:25→23:52)
[2020-06-01] MEDS: metroNIDAZOLE 500MG/100ML 100 ML IV SCH ×3 (06:00→21:46)
[2020-06-01] MEDS: BUDESONIDE (INHALATION) 0.5 MG/2 ML NEB NEB SCH ×2 (06:23→22:11)
[2020-06-01] MEDS: ALBUTEROL SULF HFA 90MCG INH 200DOSE IN SCH ×3 (06:23→19:02)
[2020-06-01] MEDS: InsuLIN REG 1unit/0.01ml Soln (100units/ml) SC SCH ×4 (07:40→21:49)
[2020-06-01] MEDS: ACCU-CHEK COMFORT CURVE STRIP VI SCH ×4 (07:40→21:47)
[2020-06-01] MEDS: SODIUM CHLORIDE 0.9% 1,000 ML IV SCH ×2 (07:43→15:29)
[2020-06-01] MEDS ORDERED: CEFTRIAXONE SODIUM 2 GM in D5W 5% 50 ML IV SCH (10:00)
[2020-06-01] MEDS: PANTOPRAZOLE 40 MG/10 ML VIAL INJ IV SCH ×2 (10:32→21:47)
[2020-06-01] MEDS: CEFTRIAXONE SODIUM 2 GM in D5W 5% 50 ML IV SCH (10:32)
[2020-06-01] MEDS: BUDESONIDE (INHALATION) 180 MCG IH IN SCH (19:02)
[2020-06-01 22:35] VITALS: BP 152/76
[2020-06-01] MEDS ORDERED: METH-973 PO (23:50)
[2020-06-01] MEDS ORDERED: INSU100I43 SC (23:50)
[2020-06-01] MEDS ORDERED: ASPI-231 PO (23:50)
[2020-06-01] MEDS ORDERED: AMLO-496 PO (23:50)
[2020-06-01] MEDS ORDERED: LISI2.5T47 PO (23:50)
[2020-06-01] MEDS ORDERED: INSU1INJ19 SC (23:50)
[2020-06-02] VITALS: BP 152/76
[2020-06-02 00:58] LABS: Basophils # (auto) 0 10 ^3/uL (0-0.2); Eosinophils # (auto) 0 10 ^3/uL (0-0.8); Monocytes # (auto) 0.4 10 ^3/uL (0-1.3); Nucleated Red Blood Cells % 0.1 %
[2020-06-02 01:00] LABS: Basophils % (auto) 0.4 % (0.0-2.0); Hematocrit 30.1 % (41.0-53.0); Hemoglobin 9.7 g/dL (13.5-17.5); Lymphocytes # (auto) 0.9 10 ^3/uL (0.4-5.4); Monocytes % (auto) 5.2 % (0.0-12.0); Neutrophils # (auto) 5.9 10 ^3/uL (1.6-8.6); Neutrophils % (auto) 82.4 % (37.0-80.0); Platelet Count (auto) 268 10^3/uL (140-450); Red Blood Cells 3.87 10^6/uL (4.5-5.90); Red Cell Distribution Width 15.8 % (11.8-14.3); White Blood Cell 7.1 10^3/uL (4.4-10.8)
[2020-06-02 01:15] LABS: Calcium 8.4 mg/dL (8.5-10.1); Potassium 3.3 mmol/L (3.5-5.1)
[2020-06-02 01:20] LABS: BUN/Creatinine Ratio 18.9
[2020-06-02] MEDS: metroNIDAZOLE 500MG/100ML 100 ML IV SCH (05:46)
[2020-06-02 06:11] LABS: Basophils # (auto) 0 10 ^3/uL (0-0.2); Basophils % (auto) 0.3 % (0.0-2.0); Eosinophils # (auto) 0 10 ^3/uL (0-0.8); Lymphocytes # (auto) 0.8 10 ^3/uL (0.4-5.4); Mean Corpuscular Hgb Conc. 32.4 g/dL (32.0-36.0); Monocytes # (auto) 0.3 10 ^3/uL (0-1.3); Neutrophils # (auto) 4.5 10 ^3/uL (1.6-8.6); Nucleated Red Blood Cells % 0.1 %; Red Blood Cells 3.58 10^6/uL (4.5-5.90)
[2020-06-02 06:13] LABS: Hemoglobin 9.1 g/dL (13.5-17.5); Lymphocytes % (auto) 14.1 % (10.0-50.0); Mean Corpuscular Hemoglobin 25.3 pg (28.0-32.0); Mean Corpuscular Volume 78.1 fL (80.0-100.0); Monocytes % (auto) 5.4 % (0.0-12.0); Neutrophils % (auto) 80.2 % (37.0-80.0); Platelet Count (auto) 236 10^3/uL (140-450); Red Cell Distribution Width 16.2 % (11.8-14.3); White Blood Cell 5.6 10^3/uL (4.4-10.8)
[2020-06-02] MEDS: ALBUTEROL SULF HFA 90MCG INH 200DOSE IN SCH ×2 (06:29→19:41)
[2020-06-02] MEDS: BUDESONIDE (INHALATION) 180 MCG IH IN SCH ×2 (06:29→19:41)
[2020-06-02 06:34] LABS: BUN/Creatinine Ratio 22.3; Calcium 7.8 mg/dL (8.5-10.1)
[2020-06-02] MEDS: ACCU-CHEK COMFORT CURVE STRIP VI SCH ×4 (06:36→22:05)
[2020-06-02] MEDS: InsuLIN REG 1unit/0.01ml Soln (100units/ml) SC SCH ×4 (06:47→22:06)
[2020-06-02 07:37] VITALS: BP 133/74
[2020-06-02] MEDS: PANTOPRAZOLE 40 MG/10 ML VIAL INJ IV SCH ×2 (11:10→22:04)
[2020-06-02] MEDS: CEFTRIAXONE SODIUM 2 GM in D5W 5% 50 ML IV SCH (11:11)
[2020-06-02] MEDS: DOXYCYCLINE 100MG/250ML 250 ML IV SCH (12:20)
[2020-06-02 15:48] VITALS: BP 142/71
[2020-06-02] MEDS: METHADONE HCL 10 MG TAB PO SCH ×2 (17:49→22:05)
[2020-06-02] MEDS: POTASSIUM CHL 20 Meq TABLET PO SCH ×2 (17:49→22:05)
[2020-06-02] MEDS: BUDESONIDE (INHALATION) 0.5 MG/2 ML NEB NEB SCH (19:41)
[2020-06-02] MEDS: metroNIDAZOLE 500 MG TAB PO SCH (22:05)
[2020-06-03 00:11] VITALS: BP 127/75
[2020-06-03] MEDS: POTASSIUM CHL 20 Meq TABLET PO SCH (01:53)
[2020-06-03 06:08] LABS: Basophils # (auto) 0 10 ^3/uL (0-0.2); Basophils % (auto) 0.1 % (0.0-2.0); Eosinophils # (auto) 0 10 ^3/uL (0-0.8); Eosinophils % (auto) 0.9 % (0.0-7.0); Hematocrit 27.1 % (41.0-53.0); Hemoglobin 9.1 g/dL (13.5-17.5); Lymphocytes # (auto) 1.1 10 ^3/uL (0.4-5.4); Lymphocytes % (auto) 26.5 % (10.0-50.0); Mean Corpuscular Hemoglobin 25.8 pg (28.0-32.0); Mean Corpuscular Hgb Conc. 33.4 g/dL (32.0-36.0); Mean Corpuscular Volume 77.3 fL (80.0-100.0); Monocytes # (auto) 0.3 10 ^3/uL (0-1.3); Monocytes % (auto) 7.3 % (0.0-12.0); Neutrophils # (auto) 2.6 10 ^3/uL (1.6-8.6); Neutrophils % (auto) 65.2 % (37.0-80.0); Nucleated Red Blood Cells % 0.1 %; Platelet Count (auto) 205 10^3/uL (140-450); Red Blood Cells 3.51 10^6/uL (4.5-5.90); White Blood Cell 4.1 10^3/uL (4.4-10.8)
[2020-06-03 06:22] LABS: BUN/Creatinine Ratio 17.9; Potassium 4.5 mmol/L (3.5-5.1)
[2020-06-03] MEDS: metroNIDAZOLE 500 MG TAB PO SCH ×3 (06:31→21:35)
[2020-06-03] MEDS: METHADONE HCL 10 MG TAB PO SCH ×4 (06:31→21:35)
[2020-06-03] MEDS: ACCU-CHEK COMFORT CURVE STRIP VI SCH ×4 (06:31→21:36)
[2020-06-03] MEDS: InsuLIN REG 1unit/0.01ml Soln (100units/ml) SC SCH ×4 (06:32→21:36)
[2020-06-03] MEDS: BUDESONIDE (INHALATION) 180 MCG IH IN SCH ×2 (07:20→22:00)
[2020-06-03] MEDS: ALBUTEROL SULF HFA 90MCG INH 200DOSE IN SCH ×3 (07:20→22:00)
[2020-06-03 08:00] VITALS: BP 124/73
[2020-06-03] MEDS: PANTOPRAZOLE 40 MG/10 ML VIAL INJ IV SCH (11:31)
[2020-06-03] MEDS: levoFLOXacin 500 MG TAB PO SCH (11:31)
[2020-06-03] MEDS: BUDESONIDE (INHALATION) 0.5 MG/2 ML NEB NEB SCH ×2 (12:40→22:00)
[2020-06-03 15:45] VITALS: BP 112/58
[2020-06-04] VITALS: BP 111/70
[2020-06-04] MEDS: METHADONE HCL 10 MG TAB PO SCH ×4 (05:04→21:27)
[2020-06-04] MEDS: metroNIDAZOLE 500 MG TAB PO SCH ×2 (05:04→15:06)
[2020-06-04] MEDS: ACCU-CHEK COMFORT CURVE STRIP VI SCH ×3 (06:22→16:34)
[2020-06-04] MEDS: InsuLIN REG 1unit/0.01ml Soln (100units/ml) SC SCH ×3 (06:23→16:38)
[2020-06-04 07:21] LABS: Basophils # (auto) 0 10 ^3/uL (0-0.2); Eosinophils # (auto) 0.1 10 ^3/uL (0-0.8); Lymphocytes # (auto) 1.2 10 ^3/uL (0.4-5.4); Monocytes # (auto) 0.3 10 ^3/uL (0-1.3); Neutrophils # (auto) 3.2 10 ^3/uL (1.6-8.6)
[2020-06-04 07:24] LABS: Basophils % (auto) 0.3 % (0.0-2.0); Lymphocytes % (auto) 24.3 % (10.0-50.0); Mean Corpuscular Hemoglobin 24.9 pg (28.0-32.0); Mean Corpuscular Volume 77.7 fL (80.0-100.0); Monocytes % (auto) 5.8 % (0.0-12.0); Neutrophils % (auto) 66.6 % (37.0-80.0); Platelet Count (auto) 222 10^3/uL (140-450); Red Blood Cells 3.61 10^6/uL (4.5-5.90); Red Cell Distribution Width 16.4 % (11.8-14.3); White Blood Cell 4.8 10^3/uL (4.4-10.8)
[2020-06-04 07:35] LABS: BUN/Creatinine Ratio 19.2; Calcium 7.9 mg/dL (8.5-10.1); Potassium 4.6 mmol/L (3.5-5.1)
[2020-06-04 08:00] VITALS: BP 141/63
[2020-06-04] MEDS ORDERED: IOHEXOL 350 MG/ML 100ML IJ ONE (09:17)
[2020-06-04] MEDS: levoFLOXacin 500 MG TAB PO SCH (10:00)
[2020-06-04] MEDS: BUDESONIDE (INHALATION) 180 MCG IH IN SCH ×2 (10:00→21:57)
[2020-06-04] MEDS: PANTOPRAZOLE 40 MG/10 ML VIAL INJ IV SCH (10:00)
[2020-06-04] MEDS ORDERED: DAKINS HALF STR 0.25% (NaHypochlorite) 473 ML TOPICAL SOL TOP ONE (13:30)
[2020-06-04 16:00] VITALS: BP 146/72
[2020-06-04] MEDS ORDERED: INSULIN LANTUS (GLARGINE) 1 /0.01ml (100units/ml) SC ONE (17:15)
[2020-06-04] MEDS ORDERED: ALBUAER3 IN (18:41)
[2020-06-04] MEDS: CEFTRIAXONE SODIUM 2 GM in D5W 5% 50 ML IV SCH (20:30)
[2020-06-04] MEDS: ALBUTEROL SULF HFA 90MCG INH 200DOSE IN SCH (21:57)
[2020-06-04] MEDS: BUDESONIDE (INHALATION) 0.5 MG/2 ML NEB NEB SCH (21:58)
[2020-06-04] MEDS ORDERED: ACCU-CHEK COMFORT CURVE STRIP VI SCH (22:00)
[2020-06-04] MEDS ORDERED: InsuLIN REG 1unit/0.01ml Soln (100units/ml) SC SCH (22:00)
[2020-06-04] MEDS ORDERED: INSULIN LANTUS (GLARGINE) 1 /0.01ml (100units/ml) SC SCH (22:00)
[2020-06-04] MEDS ORDERED: DEXTROSE (50%) 50ML SYRG IV PRN (23:15)
[2020-06-05] VITALS: BP 136/71
[2020-06-05] MEDS: ACCU-CHEK COMFORT CURVE STRIP VI SCH ×4 (00:56→18:07)
[2020-06-05] MEDS: InsuLIN REG 1unit/0.01ml Soln (100units/ml) SC SCH ×4 (00:56→18:06)
[2020-06-05] MEDS: METHADONE HCL 10 MG TAB PO SCH ×3 (06:06→18:06)
[2020-06-05] MEDS: ALBUTEROL SULF HFA 90MCG INH 200DOSE IN SCH ×2 (07:02→19:44)
[2020-06-05] MEDS: BUDESONIDE (INHALATION) 180 MCG IH IN SCH ×2 (07:02→19:44)
[2020-06-05] MEDS: BUDESONIDE (INHALATION) 0.5 MG/2 ML NEB NEB SCH (07:02)
[2020-06-05 07:22] LABS: INR 1.04 (0.9-1.15)
[2020-06-05 07:54] VITALS: BP 126/68
[2020-06-05 08:00] VITALS: BP 126/68
[2020-06-05] MEDS: PANTOPRAZOLE 40 MG/10 ML VIAL INJ IV SCH (09:22)
[2020-06-05] MEDS ORDERED: DAKINS HALF STR 0.25% (NaHypochlorite) 473 ML TOPICAL SOL TOP SCH (10:00)
[2020-06-05] MEDS ORDERED: INSULIN LANTUS (GLARGINE) 1 /0.01ml (100units/ml) SC SCH ×3 (10:00→22:00)
[2020-06-05 15:46] VITALS: BP 139/66
[2020-06-05] MEDS ORDERED: INSULIN LANTUS (GLARGINE) 1 /0.01ml (100units/ml) SC ONE (17:15)
[2020-06-05 17:48] VITALS: BP 139/66
[2020-06-05] MEDS: CEFTRIAXONE SODIUM 2 GM in D5W 5% 50 ML IV SCH (18:54)
[2020-06-05] MEDS ORDERED: SODIUM CHLOR 0.9% PF (SALINE LOCK) 10ML VIAL/SYR IV SCH (22:00)
== END 2020-06-05 20:50 | disposition home health service (06) | DRG 137 ==
LOC: ER 16:42 → EDBD 16:42 → TELE 23:05 → TELE-WESTW 06-01 22:35
PROVIDERS: ADMIT Hospitalist; ATTEND Hospitalist
PROC: 02HV33Z Insertion of Infusion Device into Superior Vena Cava, Percutaneous Approach (ICD-10-PCS; principal; 2020-06-03)
PROC: B548ZZA Ultrasonography of Superior Vena Cava, Guidance (ICD-10-PCS; 2020-06-03)
DX: U07.1 COVID-19 (principal); J12.82 Pneumonia due to coronavirus disease 2019; J96.00 Acute respiratory failure, unspecified whether with hypoxia or hypercapnia; N17.9 Acute kidney failure, unspecified; E11.10 Type 2 diabetes mellitus with ketoacidosis without coma; E11.22 Type 2 diabetes mellitus with diabetic chronic kidney disease; E11.69 Type 2 diabetes mellitus with other specified complication; M86.60 Other chronic osteomyelitis, unspecified site; K52.9 Noninfective gastroenteritis and colitis, unspecified; E78.5 Hyperlipidemia, unspecified; J98.11 Atelectasis; D63.8 Anemia in other chronic diseases classified elsewhere; B95.1 Streptococcus, group B, as the cause of diseases classified elsewhere; E87.6 Hypokalemia; F17.210 Nicotine dependence, cigarettes, uncomplicated; F41.9 Anxiety disorder, unspecified; I12.9 Hypertensive chronic kidney disease with stage 1 through stage 4 chronic kidney disease, or unspecified chronic kidney disease; N18.9 Chronic kidney disease, unspecified; Z79.4 Long term (current) use of insulin; Z82.49 Family history of ischemic heart disease and other diseases of the circulatory system; Z89.511 Acquired absence of right leg below knee; Z83.3 Family history of diabetes mellitus; Z88.6 Allergy status to analgesic agent; Z88.8 Allergy status to other drugs, medicaments and biological substances; Z88.5 Allergy status to narcotic agent; Z88.4 Allergy status to anesthetic agent; Z88.1 Allergy status to other antibiotic agents; Z91.040 Latex allergy status
CPT/HCPCS: 36415; 36569; 36600; 71045; 71275; 73600; 73630; 74176; 80048; 80053; 82010; 82728; 82805; 82962; 83605; 83690; 83735; 84484; 85025; 85379; 85610; 85730; 86141; 86850; 86900; 86901; 87040; 87081; 87205; 87426; 93005; 93971; 94640; 96365; 96367; 96375; 99291; C9113; G0378; J0696; J1100; J1815; J2405; J3490; J7060

== ENCOUNTER 2021-06-07 09:41 | Inpatient (IN) | payer MEDICAID ==
[~2021-06-07] VITALS: Ht 172.7 cm; Wt 77.7 kg
[~2021-06-07 09:41] MED LIST changes: +ALBUAER3 IN; +AMLO-496 PO; +ASPI1TAB20 PO; -HYDR1LIQ PO; -INSLANTI SC; +INSU100I43 SC; +INSU1INJ19 SC; +LISI2.5T47 PO; +METH-973 PO; -METH10T PO; -RAMI2.5C33 PO
[2021-06-07 10:25] LABS: Basophils # (auto) 0.1 10 ^3/uL (0-0.2); Basophils % (auto) 0.7 % (0.0-2.0); Eosinophils # (auto) 0 10 ^3/uL (0-0.8); Eosinophils % (auto) 0.1 % (0.0-7.0); Hematocrit 30.9 % (41.0-53.0); Hemoglobin 9.5 g/dL (13.5-17.5); Lymphocytes # (auto) 0.6 10 ^3/uL (0.4-5.4); Lymphocytes % (auto) 7.4 % (10.0-50.0); Mean Corpuscular Hemoglobin 25.9 pg (28.0-32.0); Mean Corpuscular Hgb Conc. 30.6 g/dL (32.0-36.0); Mean Corpuscular Volume 84.4 fL (80.0-100.0); Monocytes # (auto) 0.2 10 ^3/uL (0-1.3); Monocytes % (auto) 1.9 % (0.0-12.0); Neutrophils # (auto) 7.7 10 ^3/uL (1.6-8.6); Neutrophils % (auto) 89.9 % (37.0-80.0); Nucleated Red Blood Cells % 0.1 %; Red Blood Cells 3.66 10^6/uL (4.5-5.90); Red Cell Distribution Width 17.6 % (11.8-14.3); White Blood Cell 8.6 10^3/uL (4.4-10.8)
[2021-06-07 10:37] LABS: Calcium 7.4 mg/dL (8.5-10.1)
[2021-06-07 10:39] LABS: BUN/Creatinine Ratio 16.3; Bilirubin, Total 0.2 mg/dL (0.2-1.0); Total Protein 4.7 g/dL (6.4-8.2)
[2021-06-07] MEDS ORDERED: INSULIN LANTUS (GLARGINE) 1 /0.01ml (100units/ml) SC ONE ×2 (10:45→14:30)
[2021-06-07] MEDS ORDERED: DEXTROSE (50%) 50ML SYRG IV PRN ×3 (10:45→20:00)
[2021-06-07] MEDS ORDERED: InsuLIN R (HUMAN) 100 UNITS in SODIUM CHL 0.9% 99 ML IV SCH ×2 (10:45→14:30)
[2021-06-07] MEDS: SODIUM CHLORIDE 0.9% 1,000 ML IV SCH ×3 (11:32→14:08)
[2021-06-07 11:55] LABS: Basophils # (auto) 0 10 ^3/uL (0-0.2); Eosinophils # (auto) 0 10 ^3/uL (0-0.8); Hemoglobin 9.1 g/dL (13.5-17.5); Lymphocytes # (auto) 0.5 10 ^3/uL (0.4-5.4); Lymphocytes % (auto) 6.7 % (10.0-50.0); Monocytes # (auto) 0.2 10 ^3/uL (0-1.3); Nucleated Red Blood Cells % 0.1 %
[2021-06-07] MEDS: ACCU-CHEK COMFORT CURVE STRIP VI SCH ×8 (11:55→22:45)
[2021-06-07 12:02] LABS: Basophils % (auto) 0.4 % (0.0-2.0); Hematocrit 29.8 % (41.0-53.0); Mean Corpuscular Hemoglobin 26.6 pg (28.0-32.0); Mean Corpuscular Hgb Conc. 30.6 g/dL (32.0-36.0); Mean Corpuscular Volume 86.7 fL (80.0-100.0); Neutrophils % (auto) 89.9 % (37.0-80.0); Red Blood Cells 3.43 10^6/uL (4.5-5.90); Red Cell Distribution Width 17.5 % (11.8-14.3); White Blood Cell 7.8 10^3/uL (4.4-10.8)
[2021-06-07 12:32] LABS: Calcium 7.8 mg/dL (8.5-10.1)
[2021-06-07 12:43] LABS: BUN/Creatinine Ratio 16.7; Phosphorus 6.8 mg/dL (2.5-4.90)
[2021-06-07 12:51] LABS: Potassium 5.7 mmol/L (3.5-5.1)
[2021-06-07 12:51] LABS: Potassium 5.7 mmol/L (3.5-5.1)
[2021-06-07] MEDS ORDERED: CALCIUM GLUC 1,000mg/50ml-NS 50 ML IV ONE (14:00)
[2021-06-07] MEDS ORDERED: SODIUM BICARBONATE 8.4% INJ 50ML SYRINGE IV ONE (14:00)
[2021-06-07] MEDS ORDERED: FUROSEMIDE 20 MG/2 ML VIAL IV ONE (14:00)
[2021-06-07] MEDS ORDERED: ALBUTEROL SULF 2.5 MG/0.5ML(0.5%) NEB SOLN NEB ONE (14:00)
[2021-06-07] MEDS ORDERED: NITROGLYCERIN 0.4 MG SL TAB SL PRN (14:30)
[2021-06-07] MEDS ORDERED: ACETAMINOPHEN 325 MG TAB PO PRN (14:30)
[2021-06-07] MEDS ORDERED: DOCUSATE SOD 100 MG CAP PO PRN (14:30)
[2021-06-07] MEDS ORDERED: SODIUM CHLORIDE 0.9% 1,000 ML IV SCH ×5 (14:30→20:30)
[2021-06-07] MEDS ORDERED: MORPHINE SULFATE INJECTION 2 MG/ML SYRG IV PRN ×2 (14:30)
[2021-06-07] MEDS ORDERED: SODIUM BICARBONATE 8.4 % INJ 50ML VIAL IV ONE (14:45)
[2021-06-07] MEDS ORDERED: SOD CHL 0.45% 1,000 ML IV SCH (15:30)
[2021-06-07 17:01] LABS: Calcium 7.2 mg/dL (8.5-10.1); Potassium 4.2 mmol/L (3.5-5.1)
[2021-06-07 17:03] LABS: BUN/Creatinine Ratio 16.5
[2021-06-07] MEDS: InsuLIN R (HUMAN) 100 UNITS in SODIUM CHL 0.9% 99 ML IV SCH ×3 (19:30→22:30)
[2021-06-07 20:01] LABS: BUN/Creatinine Ratio 15.7; Calcium 7.5 mg/dL (8.5-10.1); Potassium 4.1 mmol/L (3.5-5.1)
[2021-06-07 20:04] LABS: Phosphorus 5.2 mg/dL (2.5-4.90)
[2021-06-07 21:49] LABS: BUN/Creatinine Ratio 15.6; Calcium 7.4 mg/dL (8.5-10.1); Potassium 4.6 mmol/L (3.5-5.1)
[2021-06-07 23:19] LABS: Phosphorus 4.6 mg/dL (2.5-4.90)
[2021-06-08] MEDS: ACCU-CHEK COMFORT CURVE STRIP VI SCH ×5 (00:15→18:19)
[2021-06-08] MEDS: InsuLIN R (HUMAN) 100 UNITS in SODIUM CHL 0.9% 99 ML IV SCH ×3 (01:32)
[2021-06-08 02:07] LABS: BUN/Creatinine Ratio 16.6; Calcium 7.6 mg/dL (8.5-10.1); Potassium 4.4 mmol/L (3.5-5.1)
[2021-06-08] MEDS ORDERED: DEXTROSE (50%) 50ML SYRG IV PRN (03:15)
[2021-06-08] MEDS: SOD CHL 0.45% 1,000 ML IV SCH ×2 (03:36→05:29)
[2021-06-08] MEDS: InsuLIN REG 1unit/0.01ml Soln (100units/ml) SC SCH ×3 (06:00→18:00)
[2021-06-08 07:04] LABS: Basophils # (auto) 0.1 10 ^3/uL (0-0.2); Eosinophils # (auto) 0 10 ^3/uL (0-0.8); Nucleated Red Blood Cells % 0.1 %
[2021-06-08 07:08] LABS: Basophils % (auto) 0.6 % (0.0-2.0); Hematocrit 28.6 % (41.0-53.0); Hemoglobin 9.1 g/dL (13.5-17.5); Lymphocytes # (auto) 1.4 10 ^3/uL (0.4-5.4); Lymphocytes % (auto) 13.9 % (10.0-50.0); Mean Corpuscular Hemoglobin 25.7 pg (28.0-32.0); Mean Corpuscular Hgb Conc. 31.9 g/dL (32.0-36.0); Mean Corpuscular Volume 80.7 fL (80.0-100.0); Monocytes # (auto) 0.6 10 ^3/uL (0-1.3); Monocytes % (auto) 6.4 % (0.0-12.0); Neutrophils # (auto) 7.8 10 ^3/uL (1.6-8.6); Neutrophils % (auto) 79.1 % (37.0-80.0); Red Blood Cells 3.54 10^6/uL (4.5-5.90); Red Cell Distribution Width 16.9 % (11.8-14.3); White Blood Cell 9.8 10^3/uL (4.4-10.8)
[2021-06-08 07:19] LABS: Chloride 112 mmol/L (98-107); Potassium 4.2 mmol/L (3.5-5.1); Sodium 142 mmol/L (136-145)
[2021-06-08 07:51] LABS: Alanine Aminotransferase < 6 U/L (16-61); Alkaline Phosphatase 126 U/L (45-117); Anion Gap 7 (5-15); Aspartate Aminotransferase 35 U/L (15-37); BUN/Creatinine Ratio 16.3; Blood Urea Nitrogen 66 mg/dL (7-18); Calcium 7.3 mg/dL (8.5-10.1); Carbon Dioxide 23 mmol/L (21-32); GFR African American 19 mL/min; GFR Non-African American 16 mL/min; Glucose 96 mg/dL (74-106); Phosphorus 4.6 mg/dL (2.5-4.90)
[2021-06-08 07:52] LABS: Bilirubin, Total 0.2 mg/dL (0.2-1.0); Total Protein 4.5 g/dL (6.4-8.2)
[2021-06-08 07:53] LABS: Albumin 0.9 g/dL (3.4-5.0)
[2021-06-08 08:09] LABS: Urine Bacteria NONE SEEN /hpf (None Seen); Urine Blood 1+ /uL (Negative); Urine Specific Gravity 1.016 (1.001-1.035); Urine WBC 1 /hpf (0 - 3)
[2021-06-08] MEDS ORDERED: FUROSEMIDE 100 MG/10ML VIAL IV ONE (08:45)
[2021-06-08 09:25] LABS: BUN/Creatinine Ratio 16.5; Calcium 7.4 mg/dL (8.5-10.1)
[2021-06-08] MEDS ORDERED: INSULIN LANTUS (GLARGINE) 1 /0.01ml (100units/ml) SC SCH (10:00)
[2021-06-08] MEDS: INSULIN LANTUS (GLARGINE) 1 /0.01ml (100units/ml) SC SCH (10:49)
[2021-06-08] MEDS: HEPARIN SODIUM (PORCINE) 5000 UNITS/ML 1ML VIAL SC SCH ×2 (10:50→22:13)
[2021-06-08] MEDS ORDERED: FURO40TA4 PO (13:19)
[2021-06-08] MEDS ORDERED: ERGO2000 PO (13:19)
[2021-06-08] MEDS ORDERED: CHOL20007 PO (13:19)
[2021-06-08] MEDS ORDERED: NIFE90TA49 PO (13:19)
[2021-06-08] MEDS: ONDANSETRON HCL 4 MG/2 ML VIAL IV PRN (16:00)
[2021-06-08 17:00] VITALS: BP 166/88
[2021-06-08] MEDS ORDERED: hydrALAZINE HCL 20 MG/ML VL IV PRN (17:45)
[2021-06-08] MEDS ORDERED: FUROSEMIDE 40 MG/4 ML VIAL IV ONE (18:00)
[2021-06-08] MEDS: HYDROmorphone HCL 2 MG/ML VL IV PRN (18:20)
[2021-06-08] MEDS: ALBUMIN 25% 100 ML IV SCH ×2 (18:24→22:18)
[2021-06-08] MEDS: FUROSEMIDE 40 MG/4 ML VIAL IV SCH (18:55)
[2021-06-08 22:00] VITALS: BP 149/67
[2021-06-09 05:00] VITALS: BP 158/59
[2021-06-09] MEDS: InsuLIN REG 1unit/0.01ml Soln (100units/ml) SC SCH ×4 (05:56→17:59)
[2021-06-09] MEDS: ACCU-CHEK COMFORT CURVE STRIP VI SCH ×4 (05:57→17:59)
[2021-06-09] MEDS: FUROSEMIDE 40 MG/4 ML VIAL IV SCH ×2 (06:04→16:14)
[2021-06-09 06:16] LABS: Calcium 6.8 mg/dL (8.5-10.1); Potassium 3.5 mmol/L (3.5-5.1)
[2021-06-09 06:20] LABS: BUN/Creatinine Ratio 18.3
[2021-06-09] MEDS: INSULIN LANTUS (GLARGINE) 1 /0.01ml (100units/ml) SC SCH (08:57)
[2021-06-09] MEDS: ALBUMIN 25% 100 ML IV SCH (08:57)
[2021-06-09 09:00] VITALS: BP 167/68
[2021-06-09] MEDS: HEPARIN SODIUM (PORCINE) 5000 UNITS/ML 1ML VIAL SC SCH ×2 (09:01→20:57)
[2021-06-09 13:00] VITALS: BP 161/59
[2021-06-09] MEDS: HYDROmorphone HCL 2 MG/ML VL IV PRN ×2 (15:12→21:04)
[2021-06-09 17:00] VITALS: BP 162/65
[2021-06-09 18:43] VITALS: BP 149/74
[2021-06-09 21:00] VITALS: BP 160/72
[2021-06-10 05:30] VITALS: BP 158/70
[2021-06-10] MEDS: ACCU-CHEK COMFORT CURVE STRIP VI SCH ×5 (05:43→23:19)
[2021-06-10] MEDS: FUROSEMIDE 40 MG/4 ML VIAL IV SCH ×2 (05:43→18:00)
[2021-06-10] MEDS: InsuLIN REG 1unit/0.01ml Soln (100units/ml) SC SCH ×5 (06:33→23:19)
[2021-06-10] MEDS: HEPARIN SODIUM (PORCINE) 5000 UNITS/ML 1ML VIAL SC SCH ×2 (10:00→21:55)
[2021-06-10] MEDS: INSULIN LANTUS (GLARGINE) 1 /0.01ml (100units/ml) SC SCH (10:00)
[2021-06-10] MEDS ORDERED: HYDROcodone-ACET 5/325MG TAB PO PRN (13:00)
[2021-06-10 14:00] VITALS: BP 154/77
[2021-06-10 14:50] LABS: BUN/Creatinine Ratio 19.9; Calcium 6.5 mg/dL (8.5-10.1)
[2021-06-10 14:52] LABS: Potassium 2.9 mmol/L (3.5-5.1)
[2021-06-10] MEDS ORDERED: POTASSIUM EFFERVESENT TAB 25 MEQ GT ONE (15:00)
[2021-06-10] MEDS: HYDROmorphone HCL 2 MG/ML VL IV PRN ×2 (16:27→21:00)
[2021-06-10 22:00] VITALS: BP 154/78
[2021-06-11] MEDS: HYDROmorphone HCL 2 MG/ML VL IV PRN ×2 (03:10→10:30)
[2021-06-11 04:47] VITALS: BP 153/78
[2021-06-11] MEDS: ACCU-CHEK COMFORT CURVE STRIP VI SCH ×2 (05:20→12:00)
[2021-06-11] MEDS: InsuLIN REG 1unit/0.01ml Soln (100units/ml) SC SCH ×3 (05:21→18:00)
[2021-06-11] MEDS: FUROSEMIDE 40 MG/4 ML VIAL IV SCH ×2 (05:24→19:17)
[2021-06-11 09:00] VITALS: BP 156/76
[2021-06-11] MEDS: INSULIN LANTUS (GLARGINE) 1 /0.01ml (100units/ml) SC SCH (10:00)
[2021-06-11] MEDS: HEPARIN SODIUM (PORCINE) 5000 UNITS/ML 1ML VIAL SC SCH ×2 (10:00→22:13)
[2021-06-11] MEDS: ONDANSETRON HCL 4 MG/2 ML VIAL IV PRN (10:30)
[2021-06-11 12:03] VITALS: BP 156/76
[2021-06-11 13:00] VITALS: BP 149/69
[2021-06-11 13:52] LABS: Mean Corpuscular Hemoglobin 26.3 pg (28.0-32.0); Red Cell Distribution Width 17.3 % (11.8-14.3)
[2021-06-11 13:54] LABS: Hematocrit 30.6 % (41.0-53.0); Mean Corpuscular Hgb Conc. 32.6 g/dL (32.0-36.0); Mean Corpuscular Volume 80.7 fL (80.0-100.0)
[2021-06-11 13:56] LABS: Band Neutrophils % (manual) 0; Basophils % (manual) 0 (0.0-2.0); Blast Cells 0; Metamyelocytes % 0; Myelocytes % 0; Promyelocytes % 0; Reactive Lymphocytes 0
[2021-06-11 14:01] LABS: BUN/Creatinine Ratio 20.8; Calcium 6.6 mg/dL (8.5-10.1); Potassium 3.6 mmol/L (3.5-5.1)
[2021-06-11 14:27] LABS: Eosinophils % (manual) 2 (0-7); Lymphocytes % (manual) 22 (10.0-50.0); Monocytes % (manual) 2 (0-12)
[2021-06-11 17:00] VITALS: BP 144/78
[2021-06-11 22:00] VITALS: BP 130/79
== END 2021-06-11 23:59 | disposition home health service (06) | DRG 420 ==
LOC: ER 09:41 → EDBD 09:41 → OVERFLOW 14:30 → TELE-WESTW 06-08 12:15
PROVIDERS: ADMIT Nurse Practitioner Family; ATTEND Nurse Practitioner Family
DX: E11.10 Type 2 diabetes mellitus with ketoacidosis without coma (principal); N17.0 Acute kidney failure with tubular necrosis; G93.41 Metabolic encephalopathy; E11.610 Type 2 diabetes mellitus with diabetic neuropathic arthropathy; J90 Pleural effusion, not elsewhere classified; E86.9 Volume depletion, unspecified; E11.52 Type 2 diabetes mellitus with diabetic peripheral angiopathy with gangrene; E78.5 Hyperlipidemia, unspecified; E87.5 Hyperkalemia; I12.9 Hypertensive chronic kidney disease with stage 1 through stage 4 chronic kidney disease, or unspecified chronic kidney disease; R09.02 Hypoxemia; E11.22 Type 2 diabetes mellitus with diabetic chronic kidney disease; E87.6 Hypokalemia; F32.A Depression, unspecified; N18.4 Chronic kidney disease, stage 4 (severe); Z20.822 Contact with and (suspected) exposure to COVID-19; F41.9 Anxiety disorder, unspecified; R77.8 Other specified abnormalities of plasma proteins; F17.210 Nicotine dependence, cigarettes, uncomplicated; S91.302A Unspecified open wound, left foot, initial encounter; X58.XXXA Exposure to other specified factors, initial encounter; E66.01 Morbid (severe) obesity due to excess calories; Z68.28 Body mass index [BMI] 28.0-28.9, adult; Z88.6 Allergy status to analgesic agent; Z88.5 Allergy status to narcotic agent; Z88.8 Allergy status to other drugs, medicaments and biological substances; Z79.4 Long term (current) use of insulin; Z82.49 Family history of ischemic heart disease and other diseases of the circulatory system; Z83.3 Family history of diabetes mellitus; Z89.511 Acquired absence of right leg below knee; Z89.512 Acquired absence of left leg below knee; Y93.89 Activity, other specified; Y92.89 Other specified places as the place of occurrence of the external cause; Y99.8 Other external cause status
CPT/HCPCS: 36415; 36600; 70450; 76705; 76775; 80048; 80053; 81001; 82010; 82805; 82962; 83036; 83735; 83880; 83930; 84100; 84484; 85007; 85025; 85027; 87081; 87426; 93005; 93306; 94640; 95819; 96365; 96366; 96368; 96372; 96375; 96376; 97110; 99291; G0378; J1815; J2405; P9047

== ENCOUNTER 2023-08-21 14:57 | Inpatient (IN) | payer OTHER, MEDICAID ==
[~2023-08-21] VITALS: Ht 172.7 cm; Wt 53.2 kg
[~2023-08-21 14:57] MED LIST changes: -AMLO-496 PO; +AMLO1TAB23 PO; +CHOL20007 PO; +ERGO2000 PO; +FURO40TA4 PO; -LISI2.5T47 PO; +NIFE90TA75 PO
[2023-08-21] MEDS: DexAMETHasone SOD PHOS 10MG/1ML VIAL INJ IM ONE (15:45)
[2023-08-21] MEDS: IPRATROPIUM BROM 0.5 MG/2.5ML INH SOL NEB ONE (16:13)
[2023-08-21] MEDS: ALBUTEROL SULF 2.5 MG/0.5ML(0.5%) NEB SOLN NEB ONE (16:14)
[2023-08-21 16:48] LABS: Basophils # (auto) 0.1 10 ^3/uL (0-0.2); Eosinophils # (auto) 0.2 10 ^3/uL (0-0.8); Monocytes # (auto) 0.3 10 ^3/uL (0-1.3)
[2023-08-21 16:50] LABS: Basophils % (auto) 1.4 % (0.0-2.0); Eosinophils % (auto) 3.6 % (0.0-7.0); Hematocrit 28.4 % (41.0-53.0); Hemoglobin 8.5 g/dL (13.5-17.5); Lymphocytes % (auto) 18.1 % (10.0-50.0); Mean Corpuscular Hemoglobin 23.7 pg (28.0-32.0); Mean Corpuscular Hgb Conc. 29.9 g/dL (32.0-36.0); Mean Corpuscular Volume 79.2 fL (80.0-100.0); Monocytes % (auto) 5.5 % (0.0-12.0); Neutrophils % (auto) 71.4 % (37.0-80.0); Red Blood Cells 3.59 10^6/uL (4.5-5.90); White Blood Cell 5.6 10^3/uL (4.4-10.8)
[2023-08-21 17:07] LABS: Alanine Aminotransferase 11 U/L (7-40); Albumin 3.1 g/dL (3.2-4.8); Alkaline Phosphatase 166 U/L (46-116); Anion Gap 7 (5-15); Aspartate Aminotransferase 9 U/L (13-40); BUN/Creatinine Ratio 12.6 (10.0-20.0); Blood Urea Nitrogen 55 mg/dL (9-23); Calcium 7.3 mg/dL (8.7-10.4); Carbon Dioxide 25 mmol/L (20-30); Chloride 108 mmol/L (98-107); Glucose 172 mg/dL (74-106); Potassium 4.6 mmol/L (3.5-5.1); Sodium 140 mmol/L (136-145)
[2023-08-21 17:08] LABS: Bilirubin, Total 0.2 mg/dL (0.2-1.0)
[2023-08-21 17:27] LABS: Lipase 19 U/L (12-53)
[2023-08-21] MEDS ORDERED: ONDANSETRON HCL 4 MG/2 ML VIAL IV PRN (23:00)
[2023-08-21] MEDS ORDERED: IPRATROPIUM BROM 0.5 MG/2.5ML INH SOL NEB PRN (23:00)
[2023-08-21] MEDS ORDERED: ACETAMINOPHEN 325 MG TAB PO PRN (23:00)
[2023-08-21] MEDS ORDERED: DOCUSATE SOD 100 MG CAP PO PRN (23:00)
[2023-08-21] MEDS ORDERED: DEXTROSE (50%) 50ML SYRG IV PRN (23:00)
[2023-08-21] MEDS ORDERED: ALBUTEROL SULF 2.5 MG/0.5ML(0.5%) NEB SOLN NEB PRN (23:00)
[2023-08-22] VITALS (13 sets, daily range): BP systolic 130–135; BP diastolic 58–78; PULSE 75–88; RESP 14–20; TEMP 97.8–98.4; O2SAT 95–98
[2023-08-22] MEDS ORDERED: NITROGLYCERIN 0.4 MG SL TAB SL PRN
[2023-08-22] MEDS: FUROSEMIDE 40 MG/4 ML VIAL IV ONE (01:16)
[2023-08-22] MEDS: SODIUM CHLOR 0.9% PF (SALINE LOCK) 10ML VIAL/SYR IV SCH (06:00)
[2023-08-22] MEDS: InsuLIN REG 1unit/0.01ml Soln (100units/ml) SC SCH ×2 (06:39→21:32)
[2023-08-22] MEDS: ACCU-CHEK COMFORT CURVE STRIP VI SCH (06:40)
[2023-08-22] MEDS: INSULIN LANTUS (GLARGINE) 1 /0.01ml (100units/ml) SC SCH (07:26)
[2023-08-22 07:28] LABS: Basophils # (auto) 0 10 ^3/uL (0-0.2); Eosinophils # (auto) 0 10 ^3/uL (0-0.8); Hemoglobin 7.3 g/dL (13.5-17.5); Lymphocytes # (auto) 0.3 10 ^3/uL (0.4-5.4); Monocytes # (auto) 0 10 ^3/uL (0-1.3); Neutrophils # (auto) 2.8 10 ^3/uL (1.6-8.6); Nucleated Red Blood Cells % 0.1 %; White Blood Cell 3.2 10^3/uL (4.4-10.8)
[2023-08-22 07:31] LABS: Basophils % (auto) 0.5 % (0.0-2.0); Hematocrit 23.9 % (41.0-53.0); Mean Corpuscular Hemoglobin 24.7 pg (28.0-32.0); Mean Corpuscular Hgb Conc. 30.5 g/dL (32.0-36.0); Mean Corpuscular Volume 80.8 fL (80.0-100.0); Neutrophils % (auto) 88.5 % (37.0-80.0); Red Blood Cells 2.96 10^6/uL (4.5-5.90); Red Cell Distribution Width 18.6 % (11.8-14.3)
[2023-08-22 07:40] LABS: Albumin 2.9 g/dL (3.2-4.8); Alkaline Phosphatase 137 U/L (46-116); Anion Gap 13 (5-15); Aspartate Aminotransferase 10 U/L (13-40); BUN/Creatinine Ratio 11.1 (10.0-20.0); Bilirubin, Total < 0.2 mg/dL (0.2-1.0); Blood Urea Nitrogen 50 mg/dL (9-23); Carbon Dioxide 20 mmol/L (20-30); Chloride 106 mmol/L (98-107); Potassium 4.9 mmol/L (3.5-5.1); Sodium 139 mmol/L (136-145); Total Protein 5.5 g/dL (5.7-8.2)
[2023-08-22 07:53] LABS: Alanine Aminotransferase < 9 U/L (7-40)
[2023-08-22 07:54] LABS: Glucose 463 mg/dL (74-106)
[2023-08-22] MEDS ORDERED: INSLANTI SC (09:06)
[2023-08-22] MEDS ORDERED: INSREG3 IV (09:08)
[2023-08-22] MEDS ORDERED: FERR325T20 PO (09:11)
[2023-08-22] MEDS ORDERED: ACAR50TA2 PO (09:11)
[2023-08-22] MEDS ORDERED: NIFE90TA75 PO (09:19)
[2023-08-22] MEDS ORDERED: METO25TA93 PO (09:19)
[2023-08-22] MEDS: B-COMPLEX W/ C & FOLIC ACID(NEPHROVITE TAB) PO SCH (09:57)
[2023-08-22] MEDS: FAMOTIDINE (10MG/ML) 2ML VL IV SCH (09:57)
[2023-08-22] MEDS: DexAMETHasone SOD PHOS 10MG/1ML VIAL INJ IV SCH (09:57)
[2023-08-22] MEDS: CLOPIDOGREL BISULFATE 75 MG TAB PO SCH (09:57)
[2023-08-22] MEDS: FUROSEMIDE 40 MG/4 ML VIAL IV SCH (09:58)
[2023-08-22 11:39] LABS: Magnesium 2.1 mg/dL (1.6-2.6)
[2023-08-22 11:40] LABS: Phosphorus 6.1 mg/dL (2.4-5.1)
[2023-08-22] MEDS: METHADONE HCL 10 MG TAB PO SCH (14:13)
[2023-08-22 19:11] LABS: Urine Bacteria FEW /hpf (None Seen); Urine Blood Negative /uL (Negative); Urine Clarity Clear (Clear); Urine Color Light-Yellow (Yellow); Urine Protein, UAD 1+ (Negative); Urine Specific Gravity 1.009 (1.001-1.035); Urine Urobilinogen Normal (Negative); Urine WBC 2 /hpf (0 - 3)
[2023-08-22 19:20] LABS: Protein, Urine 125.7 mg/dL (0.0-11.9)
[2023-08-22] MEDS: ATORVASTATIN 20 MG TAB PO SCH (21:19)
[2023-08-22 22:34] LABS: Creatinine, Urine 36.18 mg/dL (30.0-125.0); Urine Protein/Creatinine Ratio 3.47
[2023-08-23] VITALS (10 sets, daily range): BP systolic 129–173; BP diastolic 43–75; PULSE 70–84; RESP 16–22; TEMP 97.9–98.7; O2SAT 94–98
[2023-08-23] MEDS: HYDROcodone-ACET 5/325MG TAB PO PRN (01:32)
[2023-08-23 06:56] LABS: Basophils # (auto) 0 10 ^3/uL (0-0.2); Eosinophils # (auto) 0 10 ^3/uL (0-0.8); Lymphocytes # (auto) 1.2 10 ^3/uL (0.4-5.4)
[2023-08-23 07:01] LABS: Basophils % (auto) 0.4 % (0.0-2.0); Eosinophils % (auto) 0.2 % (0.0-7.0); Hematocrit 22.5 % (41.0-53.0); Mean Corpuscular Hemoglobin 24.2 pg (28.0-32.0); Mean Corpuscular Hgb Conc. 31.2 g/dL (32.0-36.0); Mean Corpuscular Volume 77.4 fL (80.0-100.0); Monocytes # (auto) 0.3 10 ^3/uL (0-1.3); Neutrophils # (auto) 6.7 10 ^3/uL (1.6-8.6); Neutrophils % (auto) 81.4 % (37.0-80.0); Red Blood Cells 2.91 10^6/uL (4.5-5.90); Red Cell Distribution Width 18.4 % (11.8-14.3); White Blood Cell 8.3 10^3/uL (4.4-10.8)
[2023-08-23 07:17] LABS: Albumin 2.9 g/dL (3.2-4.8); Alkaline Phosphatase 125 U/L (46-116); Anion Gap 8 (5-15); Aspartate Aminotransferase 8 U/L (13-40); BUN/Creatinine Ratio 12.9 (10.0-20.0); Bilirubin, Total < 0.2 mg/dL (0.2-1.0); Blood Urea Nitrogen 59 mg/dL (9-23); Carbon Dioxide 24 mmol/L (20-30); Chloride 106 mmol/L (98-107); Potassium 4.6 mmol/L (3.5-5.1); Sodium 138 mmol/L (136-145); Total Protein 5.6 g/dL (5.7-8.2)
[2023-08-23 07:29] LABS: Alanine Aminotransferase < 9 U/L (7-40); Glucose 201 mg/dL (74-106)
[2023-08-23] MEDS: MUPIROCIN 2% OINT 15gm or 22gm FOR MRSA NARES EACHNOSTRI SCH (10:29)
[2023-08-24] VITALS (12 sets, daily range): BP systolic 135–160; BP diastolic 68–80; PULSE 66–78; RESP 18–22; TEMP 97.4–98.1; O2SAT 94–98
[2023-08-24 07:20] LABS: Basophils # (auto) 0 10 ^3/uL (0-0.2); Eosinophils # (auto) 0.1 10 ^3/uL (0-0.8); Lymphocytes # (auto) 1.1 10 ^3/uL (0.4-5.4); Nucleated Red Blood Cells % 0.1 %
[2023-08-24 07:23] LABS: Basophils % (auto) 0.4 % (0.0-2.0); Hematocrit 24.7 % (41.0-53.0); Hemoglobin 7.6 g/dL (13.5-17.5); Lymphocytes % (auto) 17.7 % (10.0-50.0); Mean Corpuscular Hemoglobin 24.1 pg (28.0-32.0); Mean Corpuscular Hgb Conc. 30.7 g/dL (32.0-36.0); Mean Corpuscular Volume 78.6 fL (80.0-100.0); Monocytes # (auto) 0.2 10 ^3/uL (0-1.3); Monocytes % (auto) 3.5 % (0.0-12.0); Neutrophils # (auto) 4.9 10 ^3/uL (1.6-8.6); Neutrophils % (auto) 77.4 % (37.0-80.0); Red Blood Cells 3.14 10^6/uL (4.5-5.90); Red Cell Distribution Width 18.2 % (11.8-14.3); White Blood Cell 6.4 10^3/uL (4.4-10.8)
[2023-08-24 07:34] LABS: Calcium 6.8 mg/dL (8.5-10.1); Chloride 105 mmol/L (98-107); Potassium 4.4 mmol/L (3.5-5.1); Sodium 139 mmol/L (136-145)
[2023-08-24 07:35] LABS: Anion Gap 11 (5-15); Carbon Dioxide 23 mmol/L (20-30)
[2023-08-24 07:40] LABS: BUN/Creatinine Ratio 14.3 (10.0-20.0); Blood Urea Nitrogen 66 mg/dL (9-23); Glucose 371 mg/dL (74-106)
[2023-08-24 08:37] LABS: Hepatitis B Surface Antigen Negative (Negative)
[2023-08-24 08:59] LABS: Hepatitis C Antibody Negative (Negative)
[2023-08-24 13:11] LABS: % Iron Saturation 8.7 % (20-55)
[2023-08-24] MEDS: INSULIN LANTUS (GLARGINE) 1 /0.01ml (100units/ml) SC ONE (13:12)
[2023-08-24] MEDS: INSULIN LANTUS (GLARGINE) 1 /0.01ml (100units/ml) SC SCH (22:00)
[2023-08-24] MEDS: hydrALAZINE HCL 20 MG/ML VL IV PRN (22:28)
[2023-08-25] VITALS (7 sets, daily range): BP systolic 133–156; BP diastolic 65–75; PULSE 73–82; RESP 18–19; TEMP 97.4–98.7; O2SAT 94–95
[2023-08-25 06:00] LABS: Basophils # (auto) 0 10 ^3/uL (0-0.2); Basophils % (auto) 0.3 % (0.0-2.0); Eosinophils # (auto) 0.1 10 ^3/uL (0-0.8); Hemoglobin 8.7 g/dL (13.5-17.5); Lymphocytes # (auto) 1.2 10 ^3/uL (0.4-5.4); Mean Corpuscular Volume 77.2 fL (80.0-100.0); Monocytes # (auto) 0.3 10 ^3/uL (0-1.3); Red Cell Distribution Width 18.6 % (11.8-14.3)
[2023-08-25 06:03] LABS: Eosinophils % (auto) 1.3 % (0.0-7.0); Lymphocytes % (auto) 17.4 % (10.0-50.0); Mean Corpuscular Hgb Conc. 31.1 g/dL (32.0-36.0); Monocytes % (auto) 3.8 % (0.0-12.0); Neutrophils # (auto) 5.3 10 ^3/uL (1.6-8.6); Neutrophils % (auto) 77.2 % (37.0-80.0); Nucleated Red Blood Cells % 0.1 %; Red Blood Cells 3.62 10^6/uL (4.5-5.90); White Blood Cell 6.9 10^3/uL (4.4-10.8)
[2023-08-25 06:14] LABS: Anion Gap 9 (5-15); Carbon Dioxide 24 mmol/L (20-30); Chloride 106 mmol/L (98-107); Potassium 4.1 mmol/L (3.5-5.1); Sodium 139 mmol/L (136-145)
[2023-08-25 06:15] LABS: Calcium 7.1 mg/dL (8.7-10.4)
[2023-08-25 06:20] LABS: BUN/Creatinine Ratio 15.1 (10.0-20.0); Blood Urea Nitrogen 71 mg/dL (9-23)
[2023-08-25 06:53] LABS: Glucose 140 mg/dL (74-106)
== END 2023-08-25 14:40 | disposition home health service (06) | DRG 280 ==
LOC: ER 14:57 → TELE 23:53 → TELE-CENTR 08-22 03:20
PROVIDERS: ADMIT Nurse Practitioner Family; ATTEND Internal Medicine Geriatric Medicine
DX: I13.2 Hypertensive heart and chronic kidney disease with heart failure and with stage 5 chronic kidney disease, or end stage renal disease (principal); I21.A1 Myocardial infarction type 2; I50.41 Acute combined systolic (congestive) and diastolic (congestive) heart failure; N18.6 End stage renal disease; E44.1 Mild protein-calorie malnutrition; Z68.1 Body mass index [BMI] 19.9 or less, adult; N17.9 Acute kidney failure, unspecified; E11.65 Type 2 diabetes mellitus with hyperglycemia; E83.51 Hypocalcemia; E11.22 Type 2 diabetes mellitus with diabetic chronic kidney disease; E11.51 Type 2 diabetes mellitus with diabetic peripheral angiopathy without gangrene; D63.1 Anemia in chronic kidney disease; E78.5 Hyperlipidemia, unspecified; F41.9 Anxiety disorder, unspecified; Z53.20 Procedure and treatment not carried out because of patient's decision for unspecified reasons; E11.610 Type 2 diabetes mellitus with diabetic neuropathic arthropathy; F32.A Depression, unspecified; Z89.511 Acquired absence of right leg below knee; Z74.01 Bed confinement status; Z99.3 Dependence on wheelchair; Z88.8 Allergy status to other drugs, medicaments and biological substances; Z88.6 Allergy status to analgesic agent; Z91.040 Latex allergy status; Z79.899 Other long term (current) drug therapy; Z79.4 Long term (current) use of insulin; Z79.82 Long term (current) use of aspirin; Z83.3 Family history of diabetes mellitus; Z82.49 Family history of ischemic heart disease and other diseases of the circulatory system
CPT/HCPCS: 36415; 71046; 76775; 80048; 80053; 81001; 82306; 82570; 82728; 82962; 83540; 83550; 83605; 83690; 83735; 83880; 83970; 84100; 84156; 84300; 84484; 85025; 85379; 86803; 86850; 86900; 86901; 87077; 87081; 87186; 87205; 87340; 93005; 93306; 94640; G0378; J1100; J1815; J3490